=== PATIENT | female | born 1955 | race Caucasian/White ===

== ENCOUNTER → 2018-05-01 00:14 | Outpatient (CLI) | payer BC, SELFPAY ==
--- NOTE | 2018-05-01 11:50 | DI.REPORT_ITS ---
SYMPTOM/DIAGNOSIS: SCREENING, BREAST CANCER SCREENING Z12.31 BILATERAL SCREENING MAMMOGRAMS: Mammograms were interpreted according to the usual protocol including computer analysis with CAD system, tomosynthesis and C view imaging. Comparison is made with exams from 2012 through 2017. The breasts are composed of scattered fibroglandular densities, breast density category B. No suspicious masses or suspicious microcalcifications are seen. There has been no significant change. IMPRESSION: Category 1B negative mammogram. Routine screening is recommended. [facility] ASSESSMENT OF FINDINGS: Negative. Category 1. Patient will receive a letter notifying them of these results. BI-RADS category B. There are scattered areas of fibroglandular density.
== END ==
PROVIDERS: Visit Provider Obstetrics & Gynecology Gynecology
DX: Z12.31 Encounter for screening mammogram for malignant neoplasm of breast (principal)
CPT/HCPCS: 77063; 77067

== ENCOUNTER 2019-07-15 02:08 | Outpatient (CLI) | payer MEDICARE, SELFPAY ==
[2019-07-15 11:32] LABS: ALT 21 U/L (14-59); AST 22 U/L (15-37); Albumin 3.8 g/dL (3.4-5.0); Alkaline Phosphatase 90 U/L (46-116); Anion Gap 8.3 mmol/L (3-11); BUN 15 mg/dL (7-18); Bilirubin, Total 0.5 mg/dL (0.2-1.0); CO2 31.7 mmol/L (21.0-32.0); CREATININE 0.86 mg/dL (0.55-1.02); Calculated LDL 111 mg/dL; Chloride 103 mmol/L (98-107); Cholesterol 189 mg/dL (50-200); Glucose 77 mg/dL (70-100); HDL Cholesterol 53 mg/dL (40-60); Sodium 143 mmol/L (136-145); Triglyceride 125 mg/dL (30-150)
== END 2019-07-15 02:28 ==
PROVIDERS: Visit Provider Obstetrics & Gynecology Gynecology
DX: E78.00 Pure hypercholesterolemia, unspecified
CPT/HCPCS: 36415; 80053; 80061

== ENCOUNTER 2019-08-07 03:16 | Outpatient (CLI) | payer MEDICARE, OTHER, SELFPAY ==
--- NOTE | 2019-08-07 07:30 | DI.MAMMO_ITS ---
EXAM: MG MAMMO SCREENING MG MAMMO SCREENING CLINICAL HISTORY: screening screening TECHNIQUE: Mammograms were interpreted according to the usual protocol including computer analysis w ith CAD system, tomosynthesis and C-view imaging. COMPARISON: 2008 through 2018 FINDINGS: The breasts are composed of scattered fibroglandular densities, Breast Density category B. No suspicious masses or suspicious microcalcifications are seen. No skin thickening or abnormal axillary lymph nodes are seen. There has been no significant change from prior exams. IMPRESSION: BIRADS Category 1, negative mammogram. Yearly screening mammography is recommended.
== END 2019-08-07 03:36 ==
PROVIDERS: Visit Provider Obstetrics & Gynecology Gynecology
DX: Z12.31 Encounter for screening mammogram for malignant neoplasm of breast (principal)
CPT/HCPCS: 77063; 77067

== ENCOUNTER 2019-08-18 01:06 | Outpatient (CLI) | payer MEDICARE, OTHER, SELFPAY ==
--- NOTE | 2019-08-18 16:48 | DI.DEXA_ITS ---
EXAM: XR DEXA BONE DENSITY W/WO AUDELIA INDICATION: postmenopausal female - osteoporosis screening Z78.0 ASYMPTOMATIC KIRAN. COMPARISON: No exams were available for comparison TECHNIQUE: 2D digital imaging was performed. FINDINGS: The AUDELIA image shows no evidence of compression fractures. Bone mineral density measurements of the l umbar spine correspond to a total T-score of -0.3, in the normal range. The bone mineral density ronan surements of the left hip correspond to a total T-score of -0.3, in the normal range. The bone driver license examiner al density measurements of the left forearm correspond to a T-score of the distal 3rd of -0.8. IMPRESSION: Normal bone mineral density.
== END 2019-08-18 01:26 ==
PROVIDERS: Visit Provider Obstetrics & Gynecology Gynecology
DX: Z13.820 Encounter for screening for osteoporosis (principal); Z78.0 Asymptomatic menopausal state
CPT/HCPCS: 77080

== ENCOUNTER 2020-03-21 11:53 | Inpatient (IN) | payer MEDICARE, OTHER, SELFPAY ==
[2020-03-21] VITALS (58 sets, daily range): BP systolic 63–120; BP diastolic 36–101; PULSE 65–164; RESP 11–28; TEMP 37.2–39.4; O2SAT 6–100
[2020-03-21] MEDS: Normal Saline 1,000 ML 1000 ML IV ×2 (12:15→14:45)
[2020-03-21] MEDS: Ondansetron 4 MG/2 ML VIAL IVP (13:11)
[2020-03-21 13:19] LABS: Abs Immature Grans 0.01 k/cumm (0.0-0.09); Absolute Basophil Count 0.01 k/cumm (0.0-0.2); Absolute Lymphocyte Count 0.79 k/cumm (1.2-3.4); Absolute Monocyte Count 0.36 k/cumm (0.11-0.7); Basophils % 0.2; HCT 43.2 % (36.0-46.0); HGB 14.5 g/dL (12.0-15.5); Immature Grans % 0.2 %; Lymphocytes % 12.6; Mean Corp. HGB Concentration 33.6 g/dL (32.0-36.0); Mean Corpuscular Hemoglobin 29.8 pg (27.0-33.0); Mean Corpuscular Volume 88.7 fL (80-95); Mean Platelet Volume 10.4 fL (8.0-11.0); Monocytes % 5.7; Neutrophils % 81.3; Platelet Count 183 x1000/uL (130-400); RBC 4.87 m/cumm (4.00-5.20); RBC Distribution Width 13.1 % (11.7-14.6); White Blood Cell Count 6.27 k/cumm (4.4-10.8)
--- NOTE | 2020-03-21 13:22 | ED.GENADUL_ITS ---
Discharge Plan Discharge Details Chief Complaint: Fever Admit Date/Time: 03/22/20 11:52 Admit Provider: Thad Lyon Attending Provider: Thad Lyon Primary Care Provider: None,None ED Provider: Manisha Gonzalez Discharge Data Discharge Date/Time-TO BE ENTERED AT DEPARTURE: 03/21/20 20:15 Medical Decision Making <MAIKEL Stanton - Last Filed: 03/21/20 18:09> Is a healthy appearing 65-year-old patient presenting for concerns of fever which began yesterday. Patient describes 2 days of malaise, fevers this morning and onset of nausea and malaise yesterday. Patient reports vomiting x1 which was bilious today. Patient denies any associated diarrhea. Patient denies any abdominal pain. Patient denies headache, dizziness, chest pain, difficulty breathing or shortness of breath, wheezing. Denies any increased respiratory effort or cough. Patient denies any change of sense of taste or smell. She was able to tolerate drinking tea this morning. Patient reports urinating normal amounts. Denies associated dysuria, urgency, frequency or hematuria. Patient specifically concerned with the possibility of Covid. Patient is well-appearing at this time in no apparent distress. Patient does describe mild nausea. Patient is otherwise quite active and healthy takes no daily medications is a non-smoker. Patient denies any obvious tick bites Plan to provide 1 L of IV fluid as patient does have a heart rate on initial presentation of 103 and complaints of fever. On initial presentation patient's temperature 37.3. Patient's initial labs reveal no leukocytosis or shift. LFTs normal, glucose 111, no significant electrolyte abnormalities. Patient's urinalysis unremarkable for nitrates or leukocyte esterase, inconsistent with acute urinary tract infection Patient's vital signs are reevaluated by nursing staff and a notable fever of 103 developed. Nursing staff informed me of this. Tylenol was ordered. Given patient's obvious temperature of 103 despite any significant complaints we will plan to extend patient's work-up to include lactate, blood cultures, chest x- ray. Patient agreeable to this plan of care. Additional IV fluid was provided. Of note patient's blood pressure is typically low however she did have a drop in her blood pressure to 80/50. When considering patient's high fever and lack of source I am concerned, despite patient appearing well, in sending this patient home Dr. Manisha Gonzalez evaluated patient at the bedside. Did recommend broad-spectrum antibiotic coverage at this time and admission to the hospital. Recommended cefepime and vancomycin. Patient does have notable penicillin allergy which she describes as a rash occurring when she was younger no history of anaphylaxis, we discussed use of cefepime. We will plan to go ahead with cefepime administration IV. Patient signed out pending disposition specifically there is a notable delay currently in obtaining a hospital bed, due to high census, nurse manager relationship trying to open an additional bed for admission. Patient signed out pending disposition to Dr. Gonzalez. <Manisha Gonzalez MD - Last Filed: 03/23/20 01:19> I have seen and examined this patient and agree with the history and exam as documented by the PA. Review of systems per the PA. Briefly Jazmin Owens is a 65-year-old woman presenting to the emergency department with 1 week of mild cough and fever starting today. Patient initially reported mild headache, not the worst of her life, headache subsequently resolved after Tylenol. No meningismus on exam. Patient is well and nontoxic-appearing. Initial plan for patient to be discharged, however patient had 4 consecutive systolic blood pressures in the 80s, with lowest blood pressure 81. At no time did patient have a change in symptoms during these episodes. Concern for possible early sepsis versus dehydration versus other. No apparent localizing signs/symptoms at this time beyond mild cough, however patient has not been coughing in the emergency department. Exam/history is not consistent with bacterial meningitis, necrotizing fasciitis. Blood pressure improved to SBP 90. Given hypotension, plan for admission, broad-spectrum antibiotics at this time. Medical Records Medical records reviewed: Yes I reviewed the patient's medical records. Lab Data Lab results reviewed: Yes I reviewed the patient's lab results. ECG Data Attestation: I personally reviewed and interpreted this ECG (s) as follows: Interpretation: EKG shows sinus rhythm at 75, normal axis, no STEMI, diffuse T wave flattening, nondiagnostic EKG HPI <MAIKEL Stanton - Last Filed: 03/21/20 18:09> General Date/Time Provider Initiated Documentation: 03/21/20 12:44 . HPI Narrative: Is a 65-year-old patient presenting for complaints of fever. Patient reports fever. Patient complains of malaise which began yesterday and low-grade fever. Patient reports mild nausea and today had a single episode of vomiting. Patient denies any chest pain, difficulty breathing with shortness of breath or wheezing. Denies obvious headache or dizziness. Patient does feel like she may become dizzy when changing positions but denies any obvious dizziness. Patient denies any abdominal pain. Denies diarrhea. Patient denies rash. Denies ear pain, sore throat. Denies any change in taste or smell. Patient reports generalized malaise for the last 2 days. Patient denies any dysuria, urgency or frequency of urination. Denies any hematuria. Denies back pain. Patient does report she feels well hydrated as she has been drinking plenty of water given the hot weather. Patient concerned with the possibility of Covid given the onset of her fever and concerned as her is older than she is and wants to be cautious with the possibility of Covid. Related Data Home Medications Medication Instructions Recorded Confirmed Eye Cap 1 cap PO DAILY AM 10/01/13 03/21/20 [id number]-odgf-hxzet acid 1 ea PO DAILY 10/01/13 03/21/20 [Daily Multiple Tablet] Allergies Allergy/AdvReac Type Severity Reaction Status Date / Time Penicillins Allergy Unknown Unverified 03/21/20 12:12 General Stated Complaint: Fever SANDY: 3 Review of Systems <MAIKEL Stanton - Last Filed: 03/21/20 18:09> All systems reviewed & are unremarkable except as noted in HPI and below PFSH <MAIKEL Stanton - Last Filed: 03/21/20 18:09> Surgical History section x3. Social History Smoking/Tobacco Use Status: Never Second Hand Exposure: Yes Alcohol Intake: never Drug use: Never Household members: spouse Number of Children: 3 Seatbelt use: always Do you feel safe at home: Yes Do you feel safe in your relationship?: Yes Female Reproductive History Menstrual Menopause type: natural Exam <MAIKEL Stanton - Last Filed: 03/21/20 18:09> Narrative Exam Narrative: CONST: Healthy appearing patient, in no acute distress. Alert and oriented. HENMT: Head nomocephalic, normal to inspection. Atraumatic. Hearing grossly normal. External ear canal no erythema or swelling. TM normal bilaterally. Nose normal to inspection. No rhinnorhea. Normal facial exam. Oral mucosa normal. Tounge normal. Dentition normal. Erythema noted of the posterior oropharynx. Uvula midline. EYES: General normal appearance. Alignment normal. Eyelids normal. Conjunctiva normal. Sclera normal. PERRL. NECK: Normal visual inspection. FROM. No lymphadenopathy. Trachea midline. No Midline tenderness. CHEST: Normal insepection of the chest. RESP: Normal respiratory effort. Speaking full sentences. No cough. No wheezing. No retractions. Clear to auscaltation. Breath sound equal and present bilaterally. CARDIO: No JVD. Normal PMI. Regular Rate. Regular Rhythm. Normal peripheral pulses. GI: Normal inspection of abdomen. No distension. Soft. Nontender. Bowel sounds present in all 4 quadrants. No rebound. No gaurding. MUSCULOSKELETAL: Normal Gait. FROM of all extremities. Distal neurovascularly intact. Sensation intact distally. SKIN: Normal. Dry. No rashes. NEURO: Alert and awake. Speech clear. PSYCH: Normal affect. Cooperative. Course <MAIKEL Stanton - Last Filed: 03/21/20 18:09> Vital Signs Vital signs: Vital Signs Temperature 37.3 C 03/21/20 12:05 Pulse 103 H 03/21/20 12:05 Respiratory Rate 18 03/21/20 12:05 Blood Pressure 100/67 03/21/20 12:05 Pulse Oximetry 95 03/21/20 12:05 Temperature 37.3 C 03/21/20 12:05 Temperature Source Oral 03/21/20 12:05 Pulse 103 H 03/21/20 12:05 Respiratory Rate 18 03/21/20 12:05 Respiratory Effort Non-Labored 03/21/20 12:11 Blood Pressure 100/67 03/21/20 12:05 Blood Pressure Position Sitting 03/21/20 12:05 Pulse Oximetry 95 03/21/20 12:05 Oxygen Delivery Method Room Air 03/21/20 12:05 Oxygen Flow Rate 0 03/21/20 12:05 Pain Level 0 03/21/20 12:05 Lab/Test Results Lab/Test Results: Laboratory Tests Range/Units 03/21/20 12:35 WBC (4.4-10.8) k/cumm 6.27 RBC (4.00-5.20) m/cumm 4.87 Hgb (12.0-15.5) g/dL 14.5 Hct (36.0-46.0) % 43.2 MCV (80-95) fL 88.7 MCH (27.0-33.0) pg 29.8 MCHC (32.0-36.0) g/dL 33.6 RDW (11.7-14.6) % 13.1 Plt Count (130-400) x1000/uL 183 MPV (8.0-11.0) fL 10.4 Immature Gran % % 0.2 Neutrophils % 81.3 Lymphocytes % 12.6 Monocytes % 5.7 Eosinophils % 0.0 Basophils % 0.2 Absolute Neutrophils (1.2-6.7) k/cumm 5.10 Absolute Lymphocytes (1.2-3.4) k/cumm 0.79 L Absolute Monocytes (0.11-0.7) k/cumm 0.36 Absolute Eosinophils (0.0-0.7) k/cumm 0.00 Absolute Basophils (0.0-0.2) k/cumm 0.01 Sign Out <MAIKEL Stanton - Last Filed: 03/21/20 18:09> Sign Out Data: Sign Out Comment: signed out pending acceptance for admission Last updated by Myra Martinez PA at 03/21/20 17:04
[2020-03-21 13:27] LABS: ALT 43 U/L (14-59); AST 45 U/L (15-37); Albumin 3.5 g/dL (3.4-5.0); Alkaline Phosphatase 80 U/L (46-116); Anion Gap 7.7 mmol/L (3-11); BUN 18 mg/dL (7-18); Bilirubin, Total 0.5 mg/dL (0.2-1.0); CO2 29.3 mmol/L (21.0-32.0); CREATININE 1.04 mg/dL (0.55-1.02); Chloride 99 mmol/L (98-107); Estimated GFR 53.02 (mL/min/1.73m2); Glucose 111 mg/dL (74-106); Potassium 4.2 mmol/L (3.5-5.1); Sodium 136 mmol/L (136-145); Total Protein 7.8 g/dL (6.4-8.2)
[2020-03-21 13:38] LABS: Bilirubin Negative (Negative); Blood Trace-intact (Negative); Clarity Clear (Clear); Glucose Negative (Negative); Ketones 15 mg/dL (Negative); Leukocyte Esterase Negative (Negative); Nitrite Negative (Negative); Urobilinogen 0.2 EU/dL (Up TO 0.2)
[2020-03-21 13:47] LABS: Bacteria Few HPF (Negative); C & S Indicated? No; Casts 0-2 Fine Granular LPF (Negative); Crystals Negative HPF (Negative); Epithelial Cells Rare HPF (Negative); Mucus Negative (Negative); Other Cells Rare Renal (Negative)
--- NOTE | 2020-03-21 14:00 | DI.RAD_ITS ---
EXAM: XR PORTABLE CHEST AP CLINICAL HISTORY: fever. TECHNIQUE: 2D digital imaging was performed. COMPARISON: No exams were available for comparison FINDINGS: LUNGS: Clear. No pleural abnormality seen. HEART: Normal. MEDIASTINUM: Normal. OTHER FINDINGS: None. IMPRESSION: No acute pulmonary findings. DATA REPOSITORY: RADIATION DOSE DELIVERED:
[2020-03-21] MEDS: Acetaminophen 500 MG TAB 1000 MG PO (14:10)
[2020-03-21 14:46] LABS: Lactate 0.5 mmol/L (0.6-1.4)
[2020-03-21] MEDS: CEFEPIME 2 GM in Normal Saline 100 ML IVPB (16:58)
--- NOTE | 2020-03-21 18:00 | HPE_ITS ---
Date of service: 03/21/20 Time of Service: 18:00 Assessment and Plan Assessment and plan (1) Fever: Status: Acute Assessment and plan: Fever, with non-specific constitutional symptoms. I think the most likely explanation for the BP is a baseline low with an element of dehydration due to nausea and hot weather, but will continue to monitor closely for any signs of instability. In meantime will continue empiric abx started in ER pending culture results. COVID certainly possible, will treat as PUI. History of Present Illness History of Present Illness Chief Complaint: fever Narrative: 65 female here with one day fever, nausea, LIM, minimal cough (like her seasonal allergies), perhaps some myalgia (though was working in garden, thinks it's that). In ER temp to 39.4. W/u negative, including normal white count (though absolute lymphopenia noted), neg CXR and urine. Normal lactate. However, BP in 80s and admitted out of concern for possible emerging instability. After 2 L NS BP in 90s/sys. Note that baseline appears to be low 100s. No travel, no similar illness at home. Uses good social distancing. In ER blood cxx obtained and started on Vanco and Cefipime. Review of Systems All systems reviewed & are unremarkable except as noted in HPI and below PFSH Surgical History section x3. Social History Smoking/Tobacco Use Status: Never Second Hand Exposure: Yes Alcohol Intake: never Drug use: Never Household members: spouse Number of Children: 3 Seatbelt use: always Do you feel safe at home: Yes Do you feel safe in your relationship?: Yes Female Reproductive History Menstrual Menopause type: natural Meds Home Medications and Allergies Home Medications Medication Instructions Recorded Confirmed Type Eye Cap 1 cap PO DAILY AM 10/01/13 03/21/20 History Women's Calcium 10/01/13 Clinic ktthbildwbdz-ormm-jfozn acid 1 ea PO DAILY 10/01/13 03/21/20 History [Daily Multiple Tablet] Allergies Allergy/AdvReac Type Severity Reaction Status Date / Time Penicillins Allergy Unknown Unverified 03/21/20 12:12 Exam Narrative Exam Narrative: 91/51, 70, 37.2 (max 39.4), 18, 95% RA. Appears entirely comfortable. HEENT unremarkable; neck supple; lungs clear; heart RRR w/o MRG; abdomen soft and NT w/o HSM; extremities w/o edema; skin w/o rash; neuro Ox3, nonfocal Results Labs Result diagrams: 03/21/20 12:35 03/21/20 12:35 Labs: Laboratory Results - last 24 hr 03/21/20 03/21/20 03/21/20 12:35 12:35 13:20 WBC 6.27 RBC 4.87 Hgb 14.5 Hct 43.2 MCV 88.7 MCH 29.8 MCHC 33.6 RDW 13.1 Plt Count 183 MPV 10.4 Immature Gran % 0.2 Neutrophils % 81.3 Lymphocytes % 12.6 Monocytes % 5.7 Eosinophils % 0.0 Basophils % 0.2 Absolute Neutrophils 5.10 Absolute Lymphocytes 0.79 L Absolute Monocytes 0.36 Absolute Eosinophils 0.00 Absolute Basophils 0.01 Sodium 136 Potassium 4.2 Chloride 99 Carbon Dioxide 29.3 Anion Gap 7.7 BUN 18 Creatinine 1.04 H Estimated GFR/1.73 m2 53.02 Glucose 111 H Lactate Calcium 9.0 Total Bilirubin 0.5 AST 45 H ALT 43 Alkaline Phosphatase 80 Total Protein 7.8 Albumin 3.5 Urine Color Yellow Urine Clarity Clear Urine pH 7.0 Ur Specific [place] 1.020 Urine Protein 30 H Urine Ketones 15 H Urine Blood Trace-intact H Urine Nitrite Negative Urine Bilirubin Negative Urine Urobilinogen 0.2 Ur Leukocyte Esterase Negative Urine RBC 3-5 H Urine WBC 3-5 Ur Epithelial Cells Rare Urine Crystals Negative Urine Bacteria Few Urine Casts 0-2 fine granular Urine Mucus Negative Urine Other Rare renal Ur Culture Indicated? No Urine Glucose Negative 03/21/20 14:38 WBC RBC Hgb Hct MCV MCH MCHC RDW Plt Count MPV Immature Gran % Neutrophils % Lymphocytes % Monocytes % Eosinophils % Basophils % Absolute Neutrophils Absolute Lymphocytes Absolute Monocytes Absolute Eosinophils Absolute Basophils Sodium Potassium Chloride Carbon Dioxide Anion Gap BUN Creatinine Estimated GFR/1.73 m2 Glucose Lactate 0.5 L Calcium Total Bilirubin AST ALT Alkaline Phosphatase Total Protein Albumin Urine Color Urine Clarity Urine pH Ur Specific [place] Urine Protein Urine Ketones Urine Blood Urine Nitrite Urine Bilirubin Urine Urobilinogen Ur Leukocyte Esterase Urine RBC Urine WBC Ur Epithelial Cells Urine Crystals Urine Bacteria Urine Casts Urine Mucus Urine Other Ur Culture Indicated? Urine Glucose Last Vital Signs Temp 37.2 C 03/21/20 17:26 Pulse 70 03/21/20 17:26 Resp 18 03/21/20 17:26 BP 91/51 L 03/21/20 17:26 Pulse Ox 95 03/21/20 17:26 COVID-19 Screening In the past 14 days, have you traveled outside of [place]?: NO Had IN PERSON contact w/suspected or confirmed C-19 person: No
[2020-03-21] MEDS: Lactated Ringers 1,000 ML 150 ML IV (21:15)
[2020-03-21] MEDS: Acetaminophen 325 MG TAB 650 MG PO (21:45)
[2020-03-21] MEDS: Normal Saline Flush 10 ML SYR (22:39)
[2020-03-22] VITALS (85 sets, daily range): BP systolic 76–108; BP diastolic 44–71; PULSE 53–79; RESP 11–30; TEMP 36.3–37.7; O2SAT 95–99
[2020-03-22] MEDS: Lactated Ringers 1,000 ML 150 ML IV ×2 (03:36→22:41)
[2020-03-22] MEDS: Acetaminophen 325 MG TAB 650 MG PO ×2 (05:09→15:58)
[2020-03-22 07:32] LABS: Abs Immature Grans 0.01 k/cumm (0.0-0.09); Absolute Basophil Count 0.01 k/cumm (0.0-0.2); Absolute Lymphocyte Count 0.64 k/cumm (1.2-3.4); Absolute Monocyte Count 0.25 k/cumm (0.11-0.7); Absolute Neutrophil Count 4.64 k/cumm (1.2-6.7); Basophils % 0.2; HCT 35.1 % (36.0-46.0); HGB 11.6 g/dL (12.0-15.5); Immature Grans % 0.2 %; Lymphocytes % 11.5; Mean Corpuscular Hemoglobin 29.5 pg (27.0-33.0); Mean Corpuscular Volume 89.3 fL (80-95); Mean Platelet Volume 10.2 fL (8.0-11.0); Monocytes % 4.5; Neutrophils % 83.6; Platelet Count 153 x1000/uL (130-400); RBC 3.93 m/cumm (4.00-5.20); RBC Distribution Width 12.7 % (11.7-14.6); White Blood Cell Count 5.55 k/cumm (4.4-10.8)
[2020-03-22 07:40] LABS: AST 49 U/L (15-37); Anion Gap 7.1 mmol/L (3-11); BUN 11 mg/dL (7-18); CO2 26.9 mmol/L (21.0-32.0); CREATININE 1.03 mg/dL (0.55-1.02); Calcium 7.8 mg/dL (8.5-10.1); Chloride 104 mmol/L (98-107); Estimated GFR 53.61 (mL/min/1.73m2); Glucose 115 mg/dL (74-106); Potassium 3.6 mmol/L (3.5-5.1); Sodium 138 mmol/L (136-145)
--- NOTE | 2020-03-22 08:12 | PGE_ITS ---
Date of Service Date of service: 03/22/20 Time of Service: 13:33 Assessment and Plan Assessment and plan (1) Sepsis: Status: Acute Assessment and plan: Given the hx of dental cleaning 2 weeks ago, the most likely scenario is bacteremia/subacute bacterial endocarditis. Procalcitonin and elevated CRP also point to a bacterial source. Obtain CT chest/abdomen/pelvis to ensure that there haven't been any septic emboli. For now, continue current antibiotics, IVF, trend lactates, CRP, procalcitonins. Obtain echo. (2) Hypotension: Status: Acute Assessment and plan: Likely due to #1, but we will also rule out PE. Seems fluid responsive. Lactates ok. Continue to monitor, but upgrade to ICU level of care. I do not feel she needs pressors at this time. Yet. Obtain echo. (3) Elevated troponin: Status: Acute Assessment and plan: In setting of fever, recent dental work, elevated CRP/procalcitonin, we need to consider subacute bacterial endocarditis. However, we also need to rule out ACS and PE. Treating with asa, trending troponins, monitoring on a cardiac cath lab manager. Obtain echo. Consult cardiology. EKG unchanged (4) COVID-19 ruled out by laboratory testing: Status: Acute Assessment and plan: Negative nasopharyngeal PCR. (5) DVT prophylaxis: Status: Acute Assessment and plan: Start lovenox SC - may have to upgrade to treatment dose depending on results of CTA of the chest. (6) Discharge planning issues: Status: Acute Assessment and plan: Full code Upgrade to ICU level of care. Total Critical Care Time 45 minutes. Discussed with . Subjective Subjective Interval history since last seen: Ms Rucker feels feverish, but hasn't had an actual fever so far today. Per [facility], her SBP is usually in low 100's, so hypotension is NOT her baseline. Denies dizziness, chest pain, shortness of breath. Reports nausea and soft stools, but no abdominal pain or diarrhea. +elevated troponin. COVID-19 negative. Got tylenol for headache/malaise. No nausea last night, poor appetite x 2 weeks. She states that about 2 weeks ago she had dental cleaning done. Exam Narrative Exam Narrative: General: Pleasant, middle-aged female, appearing younger than stated age, A&Ox3, does not look sick HEENT: EOMI, MMM Heart: RRR, no m/r/g Lungs: CTAB Abdomen: soft, nontender, nondistended Extremities: no e/c/c BLE's Objective Objective Clinical Data: Abnormal lab results 03/21/20 03/21/20 03/21/20 Range/Units 12:35 12:35 13:20 RBC (4.00-5.20) m/cumm Hgb (12.0-15.5) g/dL Hct (36.0-46.0) % Absolute Lymphocytes 0.79 L (1.2-3.4) k/cumm Creatinine 1.04 H (0.55-1.02) mg/dL Glucose 111 H (74-106) mg/dL Lactate (0.6-1.4) mmol/L Calcium (8.5-10.1) mg/dL AST 45 H (15-37) U/L Urine Protein 30 H (Negative) mg/dL Urine Ketones 15 H (Negative) mg/dL Urine Blood Trace-intact H (Negative) Urine RBC 3-5 H (0-2) HPF 03/21/20 03/22/20 03/22/20 Range/Units 14:38 06:40 06:40 RBC 3.93 L (4.00-5.20) m/cumm Hgb 11.6 L D (12.0-15.5) g/dL Hct 35.1 L (36.0-46.0) % Absolute Lymphocytes 0.64 L (1.2-3.4) k/cumm Creatinine 1.03 H (0.55-1.02) mg/dL Glucose 115 H (74-106) mg/dL Lactate 0.5 L (0.6-1.4) mmol/L Calcium 7.8 L (8.5-10.1) mg/dL AST 49 H (15-37) U/L Urine Protein (Negative) mg/dL Urine Ketones (Negative) mg/dL Urine Blood (Negative) Urine RBC (0-2) HPF Vital Signs Temperature 37.5 C 03/22/20 00:30 Temperature Source Temporal Artery Scan 03/22/20 00:30 Pulse 164 H 03/21/20 23:52 Pulse Rhythm Regular 03/22/20 00:30 Pulse 103 H 03/21/20 21:40 Respiratory Rate 17 03/21/20 21:40 Respiratory Effort 03/22/20 00:30 Respiratory Depth Normal 03/22/20 00:30 Respiratory Pattern Normal 03/22/20 00:30 Blood Pressure 89/37 L 03/21/20 23:52 Blood Pressure Mean 48 03/21/20 23:52 Blood Pressure Position Supine 03/21/20 20:15 Pulse Oximetry 92 L 03/21/20 21:48 Oxygen Delivery Method Room Air 03/21/20 20:15 Oxygen Flow Rate 0 03/21/20 20:15 Pain Level 0 03/21/20 20:15 Comment temporal 03/21/20 15:05 Intake & Output 03/21/20 03/21/20 03/22/20 11:59 23:59 11:59 Intake Total 2770 / 2770 1170 / 1170 Output Total 400 / 400 350 / 350 Balance 2370 / 2370 820 / 820 Weight 57 kg Intake: IV 2370 / 2370 1050 / 1050 Oral 400 / 400 120 / 120 Output: Urine 400 / 400 350 / 350 Other: Urine Color Yellow Yellow Urine Appearance Clear Clear Urine Odor None Normal Voiding Methods Bedside Commode Laboratory Results WBC 5.55 k/cumm (4.4-10.8) 03/22/20 06:40 RBC 3.93 m/cumm (4.00-5.20) L 03/22/20 06:40 Hgb 11.6 g/dL (12.0-15.5) L D 03/22/20 06:40 Hct 35.1 % (36.0-46.0) L 03/22/20 06:40 MCV 89.3 fL (80-95) 03/22/20 06:40 MCH 29.5 pg (27.0-33.0) 03/22/20 06:40 MCHC 33.0 g/dL (32.0-36.0) 03/22/20 06:40 RDW 12.7 % (11.7-14.6) 03/22/20 06:40 Plt Count 153 x1000/uL (130-400) 03/22/20 06:40 MPV 10.2 fL (8.0-11.0) 03/22/20 06:40 Immature Gran % 0.2 % 03/22/20 06:40 Neutrophils % 83.6 03/22/20 06:40 Lymphocytes % 11.5 03/22/20 06:40 Monocytes % 4.5 03/22/20 06:40 Eosinophils % 0.0 03/22/20 06:40 Basophils % 0.2 03/22/20 06:40 Absolute Neutrophils 4.64 k/cumm (1.2-6.7) 03/22/20 06:40 Absolute Lymphocytes 0.64 k/cumm (1.2-3.4) L 03/22/20 06:40 Absolute Monocytes 0.25 k/cumm (0.11-0.7) 03/22/20 06:40 Absolute Eosinophils 0.00 k/cumm (0.0-0.7) 03/22/20 06:40 Absolute Basophils 0.01 k/cumm (0.0-0.2) 03/22/20 06:40 Sodium 138 mmol/L (136-145) 03/22/20 06:40 Potassium 3.6 mmol/L (3.5-5.1) 03/22/20 06:40 Chloride 104 mmol/L (98-107) 03/22/20 06:40 Carbon Dioxide 26.9 mmol/L (21.0-32.0) 03/22/20 06:40 Anion Gap 7.1 mmol/L (3-11) 03/22/20 06:40 BUN 11 mg/dL (7-18) D 03/22/20 06:40 Creatinine 1.03 mg/dL (0.55-1.02) H 03/22/20 06:40 Estimated GFR/1.73 m2 53.61 (mL/min/1.73m2) 03/22/20 06:40 Glucose 115 mg/dL (74-106) H 03/22/20 06:40 Lactate 0.5 mmol/L (0.6-1.4) L 03/21/20 14:38 Calcium 7.8 mg/dL (8.5-10.1) L 03/22/20 06:40 Total Bilirubin 0.5 mg/dL (0.2-1.0) 03/21/20 12:35 AST 49 U/L (15-37) H 03/22/20 06:40 ALT 43 U/L (14-59) 03/21/20 12:35 Alkaline Phosphatase 80 U/L (46-116) 03/21/20 12:35 Total Protein 7.8 g/dL (6.4-8.2) 03/21/20 12:35 Albumin 3.5 g/dL (3.4-5.0) 03/21/20 12:35 Urine Color Yellow (Yellow) 03/21/20 13:20 Urine Clarity Clear (Clear) 03/21/20 13:20 Urine pH 7.0 (5-8) 03/21/20 13:20 Ur Specific [place] 1.020 (1.005-1.025) 03/21/20 13:20 Urine Protein 30 mg/dL (Negative) H 03/21/20 13:20 Urine Ketones 15 mg/dL (Negative) H 03/21/20 13:20 Urine Blood Trace-intact (Negative) H 03/21/20 13:20 Urine Nitrite Negative (Negative) 03/21/20 13:20 Urine Bilirubin Negative (Negative) 03/21/20 13:20 Urine Urobilinogen 0.2 EU/dL (Up TO 0.2) 03/21/20 13:20 Ur Leukocyte Esterase Negative (Negative) 03/21/20 13:20 Urine RBC 3-5 HPF (0-2) H 03/21/20 13:20 Urine WBC 3-5 HPF (0-5) 03/21/20 13:20 Ur Epithelial Cells Rare HPF (Negative) 03/21/20 13:20 Urine Crystals Negative HPF (Negative) 03/21/20 13:20 Urine Bacteria Few HPF (Negative) 03/21/20 13:20 Urine Casts 0-2 fine granular LPF (Negative) 03/21/20 13:20 Urine Mucus Negative (Negative) 03/21/20 13:20 Urine Other Rare renal (Negative) 03/21/20 13:20 Ur Culture Indicated? No 03/21/20 13:20 Urine Glucose Negative mg/dL (Negative) 03/21/20 13:20
[2020-03-22 08:29] LABS: C-Reactive Protein 11.86 mg/dL (0.0-0.3)
[2020-03-22 08:34] LABS: COVID-19 RT-PCR UVMMC Result Negative (Negative)
--- NOTE | 2020-03-22 08:43 | PDOC.CMIN ---
- If Service Date Differs Date of service: 03/22/20 Time of Service: 08:43 Care Management Initial Assess REASON FOR HOSPITALIZATION:: Fever PAST MEDICAL HISTORY/PAST SURGICAL HISTORY:: Surgical hx section x 3 PREVIOUS FUNCTIONAL STATUS/SOCIAL/FAMILY SUPPORTS:: Jazmin lives locally with her spouse Tejinder. She is retired and indepedent with all ADL's. CURRENT FUNCTIONAL STATUS:: Jazmin is currently sitting up in bed she is alert. She is being worked up for sepsis related to her Fever and Hypotensition. ADVANCE DIRECTIVES:: None on file, patient states she has a copy at home which her spouse will bring in this evening. Has patient been provided with info about the portal/API?: Yes Did the patient sign up for the portal?: No (Enrolled) CODE STATUS:: Full Code INSURANCE COVERAGE / FINANCIAL ISSUES:: Medicare. BCBS CURRENT HOME/COMMUNITY SERVICES/EQUIPMENT:: No current services PRIMARY CARE PHYSICIAN:: Wants to be refered to [facility], CM will send over a referral POTENTIAL DISCHARGE NEEDS:: Follow up with cardiology if indicated and new referral to new PCP patients choice [facility]. PATIENT/FAMILY EDUCATION NEEDS:: Discharge educations, limitations and follow up plan of care including ask me three and self management. ANTICIPATED BARRIERS TO DISCHARGE:: No identified barriers TRANSPORTATION:: Via private car with spouse at time of discharge. PLAN:: Jazmin is now ICU level of care, she had a cardiology consult. She continues to have some hypotension, she is being treated with IV abx and her blood cultures are pending. No anticipated services CM will assist with PCP set up and continue to assess for discharge needs.
[2020-03-22 08:52] LABS: Procalcitonin 1.7 ng/mL
[2020-03-22] MEDS: CEFEPIME 1 GM in Normal Saline 50 ML IVPB ×3 (10:34→18:17)
[2020-03-22 10:51] LABS: Lyme Ab w Rflx to Lyme Confirm Negative (Negative)
[2020-03-22] MEDS: Lactated Ringers 1,000 ML 1000 ML IV (12:11)
[2020-03-22 12:21] LABS: Lactate 0.7 mmol/L (0.6-1.4)
[2020-03-22 12:46] LABS: Troponin I 0.44 ng/mL (<0.06)
[2020-03-22] MEDS: Omnipaque 350 MG/ML 100 ML BTL IJ (13:27)
--- NOTE | 2020-03-22 13:45 | DI.CT_ITS ---
EXAM: CT CHEST PE ABD PELVIS W TECHNIQUE: CT angiography of the chest, abdomen and pelvis was performed with bolus infusion of 75 c c of Omnipaque 350. Axial CT angiography was performed with multi-slice acquisition and multi-planar and/or 3D reconstruc tions. COMPARISON: No exams were available for comparison FINDINGS: The lungs are clear. No pleural effusion. No evidence of pulmonary embolic disease. No thoracic aort ic dissection. No pleural effusion. No mediastinal or hilar adenopathy. Tracheobronchial tree appears intact. Note is made of a couple of small left hepatic lobe lesions with peripheral nodular enhancement consi sting with hepatic hemangioma. Gallbladder is collapsed. Small quantity of fluid in gallbladder fos sa, nonspecific. No cholelithiasis by CT criteria. No biliary dilatation. Question mild wall thick ening of duodenum. Question wall thickening ascending colon, no pericolonic fat edema. Mild wall th ickening of transverse colon may also be present. Pancreas is unremarkable. Spleen shows unremarkable early arterial phase pattern of enhancement. Adrenals and kidneys are unremarkable appearance. No abdominal aortic aneurysm or dissection. Major branches of the abdominal aorta appear normal. No a bdominal or pelvic adenopathy. Normal appendix. No significant abdominal wall hernia. Pressure Washer structures appear intact for age. IMPRESSION: No evidence of acute vascular abnormality of the chest, abdomen or pelvis. No evidence of pulmonary embolic disease. Findings raising the possibility GI inflammatory/infectious process with possible signs of colitis an d duodenitis. Please correlate clinically. RADIATION DOSE DELIVERED: 1,127.09mGy.cm Total DLP DATA REPOSITORY: All CT scans at this facility are submitted to the National Radiology Data Registry (NRDR) Dose Index Registry (DIR) with the [employer] (ACR). RADIATION OPTIMIZATION: All CT scans at this facility use at least one of these dose optimization te chniques: automated exposure control; mA and/or kV adjustment per patient size (includes targeted exa ms where dose is matched to clinical indication); or iterative reconstruction. Seventy-five
[2020-03-22] MEDS: Aspirin E.C. 325 MG TABEC PO (13:56)
[2020-03-22] MEDS: Enoxaparin 40 MG/0.4 ML SYR SC (13:57)
[2020-03-22 14:10] LABS: INR 1.1 (0.9-1.1); PTT Activated 30.5 sec (21.0-31.4); Prothrombin Time 11.1 sec (9.3-11.0)
[2020-03-22 14:24] LABS: D-Dimer 1535 ng/mlFEU (<500)
--- NOTE | 2020-03-22 14:27 | W.CARDCONSUL ---
Date of service: 03/22/20 Time of Service: 14:28 Assessment and Plan Assessment and plan (1) Hypotension: Status: Acute (2) Elevated troponin: Status: Acute (3) Sepsis: Status: Acute (4) Fever: Status: Acute Assessment and plan: 1. Elevated troponin in the setting of inflammatory response. The patient has a fever and elevated CRP. Blood cultures are still pending. There is still no source of infection and unclear whether or not this is viral or bacterial in nature. She has no chest pain now or prior to suggest this is a type I non-STEMI. She is comfortable in bed and has not had any episodes of palpitations or arrhythmia. This likely represents a type II non-STEMI though it is unclear whether or not the trigger is simply hypotension from presumed sepsis or otherwise. Her EKG is reassuring as is her exam. She has no murmur or evidence of heart failure. Given her recent tooth cleaning there is also suspicion for possible endocarditis but again, I do not hear a murmur and she has no other sequelae of endocarditis on physical exam. Certainly there is concern for a possible viral myocarditis. ?Agree with serial troponins ?Echocardiogram to evaluate LV function and rule out endocarditis ?Blood cultures pending ?Would hold off on anticoagulation at this point. I think a baby aspirin is appropriate ?She will need an ischemic evaluation as an outpatient. ?She should be fluid resuscitated or pressors should be used with a goal map above 60 mmHg. Please consult cardiology with any further questions History of Present Illness History of Present Illness Chief Complaint: Fever Narrative: Ms. Rucker is a 65-year-old female who presented to the hospital yesterday with 1 day of fever nausea and myalgias. She was found to have a temperature of 39.4 and mildly hypotensive. She was given fluid and started on broad-spectrum antibiotics. She is currently being worked up for a bacterial infection. She has had a COVID-19 rule out with PCR. A chest and abdominal CT scan showed no clear source of infection though some concern for colitis. A troponin was drawn which was elevated at 0.4. CRP was elevated at 12. Blood pressures have remained with systolic in the 80s throughout the day. She states that 3 days ago she was feeling well. She is always been very healthy. She denies chest pain both at rest and with exertion. She has had no lightheadedness or dizziness. She has had no lower extremity edema syncope or presyncope. She initially came to the hospital just to get a COVID test ended up here due to hypotension but she has never felt that unwell. Of note, she had a tooth cleaning about 2 weeks ago without any significant dental work or bleeding associated with it. She is not had any changes to her bowel or bladder habits. ECG showed normal sinus rhythm with T wave flattening inferiorly. There is no prior for comparison. Review of Systems All systems reviewed & are unremarkable except as noted in HPI and below PFSH Surgical History section x3. Social History Smoking/Tobacco Use Status: Never Second Hand Exposure: Yes Alcohol Intake: never Drug use: Never Household members: spouse Number of Children: 3 Seatbelt use: always Do you feel safe at home: Yes Do you feel safe in your relationship?: Yes Female Reproductive History Menstrual Menopause type: natural Exam Const General: comfortable and no acute distress HENMT Head: normocephalic and atraumatic Eyes General: appearance normal, both eyes and all related structures Resp Effort & Inspection: normal respiratory effort Auscultation: clear to auscultation bilaterally Cardio Jugular venous pressure: no JVD Palpation: normal PMI Rate: regular rate Rhythm: regular rhythm Heart Sounds: S1 normal and S2 normal (No Murmurs, Rubs or Gallops) GI Palpation: soft Auscultation: normoactive bowel sounds Skin General skin exam: no rashes or lesions noted Extrem General: normal to inspection and no clubbing, cyanosis or edema Psych Appearance: grossly normal Results Last Vital Signs Temp 36.3 C L 03/22/20 11:58 Pulse 67 03/22/20 11:50 Resp 16 03/22/20 08:52 BP 100/50 L 03/22/20 11:50 Pulse Ox 99 03/22/20 11:50 Labs Result diagrams: 03/22/20 06:40 03/22/20 06:40 Labs: Laboratory Results - last 24 hr 03/21/20 03/21/20 03/21/20 14:38 14:38 14:45 WBC RBC Hgb Hct MCV MCH MCHC RDW Plt Count MPV Immature Gran % Neutrophils % Lymphocytes % Monocytes % Eosinophils % Basophils % Absolute Neutrophils Absolute Lymphocytes Absolute Monocytes Absolute Eosinophils Absolute Basophils PT INR APTT D-Dimer Sodium Potassium Chloride Carbon Dioxide Anion Gap BUN Creatinine Estimated GFR/1.73 m2 Glucose Lactate 0.5 L Calcium AST Troponin I C-Reactive Protein Procalcitonin Lyme Disease Antibody Negative COVID-19 PCR Negative Nasopharyn COVID-19 PCR Not Applicable Ref Test [facility]/22/[facility] 03/22/20 03/22/20 06:40 06:40 06:40 WBC 5.55 RBC 3.93 L Hgb 11.6 L D Hct 35.1 L MCV 89.3 MCH 29.5 MCHC 33.0 RDW 12.7 Plt Count 153 MPV 10.2 Immature Gran % 0.2 Neutrophils % 83.6 Lymphocytes % 11.5 Monocytes % 4.5 Eosinophils % 0.0 Basophils % 0.2 Absolute Neutrophils 4.64 Absolute Lymphocytes 0.64 L Absolute Monocytes 0.25 Absolute Eosinophils 0.00 Absolute Basophils 0.01 PT INR APTT D-Dimer Sodium 138 Potassium 3.6 Chloride 104 Carbon Dioxide 26.9 Anion Gap 7.1 BUN 11 D Creatinine 1.03 H Estimated GFR/1.73 m2 53.61 Glucose 115 H Lactate Calcium 7.8 L AST 49 H Troponin I C-Reactive Protein 11.86 H Procalcitonin 1.7 Lyme Disease Antibody COVID-19 PCR Nasopharyn COVID-19 PCR Ref Test Perform Site 03/22/20 03/22/20 03/22/20 12:10 12:10 13:19 WBC RBC Hgb Hct MCV MCH MCHC RDW Plt Count MPV Immature Gran % Neutrophils % Lymphocytes % Monocytes % Eosinophils % Basophils % Absolute Neutrophils Absolute Lymphocytes Absolute Monocytes Absolute Eosinophils Absolute Basophils PT INR APTT D-Dimer 1535 H Sodium Potassium Chloride Carbon Dioxide Anion Gap BUN Creatinine Estimated GFR/1.73 m2 Glucose Lactate 0.7 Calcium AST Troponin I 0.44 H* C-Reactive Protein Procalcitonin Lyme Disease Antibody COVID-19 PCR Nasopharyn COVID-19 PCR Ref Test Perform Site 03/22/20 13:19 WBC RBC Hgb Hct MCV MCH MCHC RDW Plt Count MPV Immature Gran % Neutrophils % Lymphocytes % Monocytes % Eosinophils % Basophils % Absolute Neutrophils Absolute Lymphocytes Absolute Monocytes Absolute Eosinophils Absolute Basophils PT 11.1 H INR 1.1 APTT 30.5 D-Dimer Sodium Potassium Chloride Carbon Dioxide Anion Gap BUN Creatinine Estimated GFR/1.73 m2 Glucose Lactate Calcium AST Troponin I C-Reactive Protein Procalcitonin Lyme Disease Antibody COVID-19 PCR Nasopharyn COVID-19 PCR Ref Test Perform Site
[2020-03-22 15:20] LABS: Lactate 0.4 mmol/L (0.6-1.4)
[2020-03-22] MEDS: Pantoprazole 40 MG VIAL IVP (15:24)
[2020-03-22 15:46] LABS: Troponin I 0.37 ng/mL (<0.06)
[2020-03-22 18:00] LABS: Lactate 0.5 mmol/L (0.6-1.4)
[2020-03-23] VITALS (31 sets, daily range): BP systolic 79–117; BP diastolic 43–76; PULSE 54–80; RESP 10–26; TEMP 35.6–37; O2SAT 97
[2020-03-23] MEDS: CEFEPIME 1 GM in Normal Saline 50 ML IVPB ×3 (02:45→18:15)
[2020-03-23] MEDS: Acetaminophen 325 MG TAB 650 MG PO ×2 (05:50→21:01)
[2020-03-23] MEDS: Normal Saline Flush 10 ML SYR IVP ×2 (06:04→14:08)
[2020-03-23 07:02] LABS: Absolute Eosinophil Count 0.14 k/cumm (0.0-0.7); Absolute Lymphocyte Count 0.91 k/cumm (1.2-3.4); Absolute Monocyte Count 0.27 k/cumm (0.11-0.7); Absolute Neutrophil Count 1.73 k/cumm (1.2-6.7); Eosinophils % 4.6; Lymphocytes % 29.8; Mean Corp. HGB Concentration 33.3 g/dL (32.0-36.0); Mean Corpuscular Hemoglobin 29.6 pg (27.0-33.0); Mean Corpuscular Volume 88.9 fL (80-95); Mean Platelet Volume 10.4 fL (8.0-11.0); Monocytes % 8.9; Neutrophils % 56.7; Platelet Count 120 x1000/uL (130-400); RBC 3.71 m/cumm (4.00-5.20); RBC Distribution Width 12.8 % (11.7-14.6); White Blood Cell Count 3.05 k/cumm (4.4-10.8)
[2020-03-23 07:16] LABS: Anion Gap 6.2 mmol/L (3-11); BUN 8 mg/dL (7-18); C-Reactive Protein 11.79 mg/dL (0.0-0.3); CO2 27.8 mmol/L (21.0-32.0); Calcium 7.9 mg/dL (8.5-10.1); Chloride 106 mmol/L (98-107); Glucose 99 mg/dL (74-106); Magnesium 1.8 mg/dL (1.8-2.4); Potassium 3.7 mmol/L (3.5-5.1); Sodium 140 mmol/L (136-145)
[2020-03-23 07:17] LABS: Troponin I 0.16 ng/mL (<0.06)
--- NOTE | 2020-03-23 08:24 | W.PM.PROGNOT ---
Date of Service Date of service: 03/23/20 Time of Service: 12:00 Assessment and Plan Assessment and plan (1) Sepsis: Status: Acute Assessment and plan: Source unclear. Blood cultures are negative at 48 hours. Discussed with [place] [facility] [place] H[place] - possible culture negative endocarditis vs viral myocarditis. She does not give much value to procalcitonin being elevated, but does think that it is important to note that she is better with IV abx. Given no obvious source of infection, per her recommendation, we will continue IV abx until she feels better, then switch to empiric PO therapy and discharge with repeat blood cultures 1 week post discontinuation of antibiotics. Continue to trend CRP, procalcitonin. Ok to transfer out of ICU as no longer hypotensive. Obtain stool studies. (2) Hypotension: Status: Resolved Assessment and plan: Likely due to #1. We were able to lower the rate of IVF today. Ok to transfer out of ICU. (3) NSTEMI (non-ST elevated myocardial infarction): Status: Acute Assessment and plan: Type 2 NSTEMI Likely due to sepsis, though myocarditis could not be ruled out at this time. If does have myocarditis, there is no indication thereof on the echo. No valvular pathology on the echo c/w endocarditis. Discussed with Dr Jessica Terry of [facility] [place] - no indication for cardiac cath. Will treat infection with abx, then perform MPI (possibly as outpatient). ID recommended considering [place], but in absence of positive blood cultures, cardiology did not feel that was necessary. For now, continue asa. Check FLP. Ok to transfer out of ICU. Keep on tele. (4) COVID-19 ruled out by laboratory testing: Status: Acute Assessment and plan: Negative nasopharyngeal PCR. (5) DVT prophylaxis: Status: Acute Assessment and plan: SC lovenox (6) Discharge planning issues: Status: Acute Assessment and plan: Full code Transfer to med surg with tele. Subjective Subjective Interval history since last seen: Afebrile. Feeling better - less clouded. Denies dizziness, chest pain, shortness of breath, nausea, abdominal pain. Having soft stools. SBPs now in 110's. Case discussed with [facility] [place] ID and cardiology - no indication for transfer at this time. Recommendations were made to continue IV abx until she feels better since we haven't been able to identify the source, the switch to empiric PO therapy. She will need an outpatient MPI. Exam Narrative Exam Narrative: General: Pleasant, middle-aged female, appearing younger than stated age, A&Ox3, looks better today than yesterday HEENT: EOMI, MMM Heart: RRR, no m/r/g Lungs: CTAB Abdomen: soft, nontender, nondistended Extremities: no e/c/c BLE's Objective Objective Clinical Data: Abnormal lab results 03/22/20 03/22/20 03/22/20 Range/Units 06:40 12:10 13:19 WBC (4.4-10.8) k/cumm RBC (4.00-5.20) m/cumm Hgb (12.0-15.5) g/dL Hct (36.0-46.0) % Plt Count (130-400) x1000/uL Absolute Lymphocytes (1.2-3.4) k/cumm PT (9.3-11.0) sec D-Dimer 1535 H (<500) ng/mlFEU Creatinine 1.03 H (0.55-1.02) mg/dL Glucose 115 H (74-106) mg/dL Lactate (0.6-1.4) mmol/L Calcium 7.8 L (8.5-10.1) mg/dL AST 49 H (15-37) U/L Troponin I 0.44 H* (<0.06) ng/mL C-Reactive Protein 11.86 H (0.0-0.3) mg/dL 03/22/20 03/22/20 03/22/20 Range/Units 13:19 15:10 15:10 WBC (4.4-10.8) k/cumm RBC (4.00-5.20) m/cumm Hgb (12.0-15.5) g/dL Hct (36.0-46.0) % Plt Count (130-400) x1000/uL Absolute Lymphocytes (1.2-3.4) k/cumm PT 11.1 H (9.3-11.0) sec D-Dimer (<500) ng/mlFEU Creatinine (0.55-1.02) mg/dL Glucose (74-106) mg/dL Lactate 0.4 L (0.6-1.4) mmol/L Calcium (8.5-10.1) mg/dL AST (15-37) U/L Troponin I 0.37 H* (<0.06) ng/mL C-Reactive Protein (0.0-0.3) mg/dL 03/22/20 03/23/20 03/23/20 Range/Units 17:45 00:40 06:40 WBC (4.4-10.8) k/cumm RBC (4.00-5.20) m/cumm Hgb (12.0-15.5) g/dL Hct (36.0-46.0) % Plt Count (130-400) x1000/uL Absolute Lymphocytes (1.2-3.4) k/cumm PT (9.3-11.0) sec D-Dimer (<500) ng/mlFEU Creatinine (0.55-1.02) mg/dL Glucose (74-106) mg/dL Lactate 0.5 L (0.6-1.4) mmol/L Calcium 7.9 L (8.5-10.1) mg/dL AST (15-37) U/L Troponin I 0.20 H* 0.16 H* (<0.06) ng/mL C-Reactive Protein 11.79 H (0.0-0.3) mg/dL 03/23/20 Range/Units 06:40 WBC 3.05 L D (4.4-10.8) k/cumm RBC 3.71 L (4.00-5.20) m/cumm Hgb 11.0 L (12.0-15.5) g/dL Hct 33.0 L (36.0-46.0) % Plt Count 120 L (130-400) x1000/uL Absolute Lymphocytes 0.91 L (1.2-3.4) k/cumm PT (9.3-11.0) sec D-Dimer (<500) ng/mlFEU Creatinine (0.55-1.02) mg/dL Glucose (74-106) mg/dL Lactate (0.6-1.4) mmol/L Calcium (8.5-10.1) mg/dL AST (15-37) U/L Troponin I (<0.06) ng/mL C-Reactive Protein (0.0-0.3) mg/dL Vital Signs Temperature 36.6 C 03/23/20 07:47 Temperature Source Temporal Artery Scan 03/23/20 07:47 Pulse 54 L 03/23/20 07:00 Pulse Rhythm Regular 03/22/20 15:30 Pulse 60 03/23/20 07:00 Respiratory Rate 13 03/23/20 07:00 Respiratory Effort Non-Labored 03/23/20 07:47 Respiratory Depth Normal 03/23/20 07:47 Respiratory Pattern Normal 03/23/20 07:47 Blood Pressure 93/51 L 03/23/20 07:00 Blood Pressure Mean 60 03/23/20 07:00 Blood Pressure Position Supine 03/23/20 03:10 Pulse Oximetry 97 03/23/20 03:10 Oxygen Delivery Method Room Air 03/23/20 07:47 Oxygen Flow Rate 0 03/23/20 07:47 Pain Level 0 03/23/20 07:47 Comment temporal 03/21/20 15:05 Intake & Output 03/22/20 03/22/20 03/23/20 11:59 23:59 11:59 Intake Total 2445 / 4085 1640 / 4085 400 / 400 Output Total 2050 / 3250 1200 / 3250 600 / 600 Balance 395 / 835 440 / 835 -200 / -200 Weight 57 kg Intake: IV 2085 / 3085 1000 / 3085 300 / 300 Oral 360 / 1000 640 / 1000 100 / 100 Output: Urine 2050 / 3250 1200 / 3250 600 / 600 Other: Urine Color Yellow Pale Yellow Yellow Urine Appearance Clear Clear Clear Urine Odor Normal None Normal Comment Mixed with stool. voids to commode. Void 150cc clear yellow urine. Stool Occult Blood Negative Stool Size Moderate Moderate Stool Characteristics Soft Soft Formed Liquid Brown Brown Voiding Methods Bedside Commode Bedside Commode Laboratory Results WBC 3.05 k/cumm (4.4-10.8) L D 03/23/20 06:40 RBC 3.71 m/cumm (4.00-5.20) L 03/23/20 06:40 Hgb 11.0 g/dL (12.0-15.5) L 03/23/20 06:40 Hct 33.0 % (36.0-46.0) L 03/23/20 06:40 MCV 88.9 fL (80-95) 03/23/20 06:40 MCH 29.6 pg (27.0-33.0) 03/23/20 06:40 MCHC 33.3 g/dL (32.0-36.0) 03/23/20 06:40 RDW 12.8 % (11.7-14.6) 03/23/20 06:40 Plt Count 120 x1000/uL (130-400) L 03/23/20 06:40 MPV 10.4 fL (8.0-11.0) 03/23/20 06:40 Immature Gran % 0.0 % 03/23/20 06:40 Neutrophils % 56.7 03/23/20 06:40 Lymphocytes % 29.8 03/23/20 06:40 Monocytes % 8.9 03/23/20 06:40 Eosinophils % 4.6 03/23/20 06:40 Basophils % 0.0 03/23/20 06:40 Absolute Neutrophils 1.73 k/cumm (1.2-6.7) 03/23/20 06:40 Absolute Lymphocytes 0.91 k/cumm (1.2-3.4) L 03/23/20 06:40 Absolute Monocytes 0.27 k/cumm (0.11-0.7) 03/23/20 06:40 Absolute Eosinophils 0.14 k/cumm (0.0-0.7) 03/23/20 06:40 Absolute Basophils 0.00 k/cumm (0.0-0.2) 03/23/20 06:40 PT 11.1 sec (9.3-11.0) H 03/22/20 13:19 INR 1.1 (0.9-1.1) 03/22/20 13:19 APTT 30.5 sec (21.0-31.4) 03/22/20 13:19 D-Dimer 1535 ng/mlFEU (<500) H 03/22/20 13:19 Sodium 140 mmol/L (136-145) 03/23/20 06:40 Potassium 3.7 mmol/L (3.5-5.1) 03/23/20 06:40 Chloride 106 mmol/L (98-107) 03/23/20 06:40 Carbon Dioxide 27.8 mmol/L (21.0-32.0) 03/23/20 06:40 Anion Gap 6.2 mmol/L (3-11) 03/23/20 06:40 BUN 8 mg/dL (7-18) 03/23/20 06:40 Creatinine 0.80 mg/dL (0.55-1.02) 03/23/20 06:40 Estimated GFR/1.73 m2 >= 60.00 (mL/min/1.73m2) 03/23/20 06:40 Glucose 99 mg/dL (74-106) 03/23/20 06:40 Lactate 0.5 mmol/L (0.6-1.4) L 03/22/20 17:45 Calcium 7.9 mg/dL (8.5-10.1) L 03/23/20 06:40 Magnesium 1.8 mg/dL (1.8-2.4) 03/23/20 06:40 Total Bilirubin 0.5 mg/dL (0.2-1.0) 03/21/20 12:35 AST 49 U/L (15-37) H 03/22/20 06:40 ALT 43 U/L (14-59) 03/21/20 12:35 Alkaline Phosphatase 80 U/L (46-116) 03/21/20 12:35 Troponin I 0.16 ng/mL (<0.06) H* 03/23/20 06:40 C-Reactive Protein 11.79 mg/dL (0.0-0.3) H 03/23/20 06:40 Total Protein 7.8 g/dL (6.4-8.2) 03/21/20 12:35 Albumin 3.5 g/dL (3.4-5.0) 03/21/20 12:35 Procalcitonin 1.7 ng/mL 03/22/20 06:40 Urine Color Yellow (Yellow) 03/21/20 13:20 Urine Clarity Clear (Clear) 03/21/20 13:20 Urine pH 7.0 (5-8) 03/21/20 13:20 Ur Specific [place] 1.020 (1.005-1.025) 03/21/20 13:20 Urine Protein 30 mg/dL (Negative) H 03/21/20 13:20 Urine Ketones 15 mg/dL (Negative) H 03/21/20 13:20 Urine Blood Trace-intact (Negative) H 03/21/20 13:20 Urine Nitrite Negative (Negative) 03/21/20 13:20 Urine Bilirubin Negative (Negative) 03/21/20 13:20 Urine Urobilinogen 0.2 EU/dL (Up TO 0.2) 03/21/20 13:20 Ur Leukocyte Esterase Negative (Negative) 03/21/20 13:20 Urine RBC 3-5 HPF (0-2) H 03/21/20 13:20 Urine WBC 3-5 HPF (0-5) 03/21/20 13:20 Ur Epithelial Cells Rare HPF (Negative) 03/21/20 13:20 Urine Crystals Negative HPF (Negative) 03/21/20 13:20 Urine Bacteria Few HPF (Negative) 03/21/20 13:20 Urine Casts 0-2 fine granular LPF (Negative) 03/21/20 13:20 Urine Mucus Negative (Negative) 03/21/20 13:20 Urine Other Rare renal (Negative) 03/21/20 13:20 Ur Culture Indicated? No 03/21/20 13:20 Urine Glucose Negative mg/dL (Negative) 03/21/20 13:20 Lyme Disease Antibody Negative (Negative) 03/21/20 14:38 COVID-19 PCR Negative (Negative) 03/21/20 14:45 Nasopharyn COVID-19 PCR Not Applicable 03/21/20 14:45 Ref Test Perform Site [facility] lab 03/21/20 14:45 Echo: LVEF 60%, no wall motion abnormalities or valvular pathology.
[2020-03-23] MEDS: Multivitamin w/Minerals TAB 1 TAB PO (08:59)
[2020-03-23] MEDS: Aspirin E.C. 81 MG TABEC PO (08:59)
--- NOTE | 2020-03-23 09:09 | CMPROGNOTE_ITS ---
- If Service Date Differs Date of service: 03/23/20 Time of Service: 09:09 Care Management Progress Note S/O:Jazmin remains ICU level of care. If she is discharged home [facility] is willing to provide her with a follow up appointment. Awaiting disposition before establishing care with [facility]. If she is discharged home they should be contacted to schedule hospital follow up. A: Jazmin is a 65 year old female admitted with Fever. P: CM contacted [facility] and they have agreed to see her post hospital discharge. Jazmin may be transferred to tertiary center pending cardiology consult and assessment.
[2020-03-23] MEDS: Lactated Ringers 1,000 ML 150 ML IV (09:12)
[2020-03-23] MEDS: Pantoprazole 40 MG VIAL IVP (14:08)
[2020-03-23] MEDS: Enoxaparin 40 MG/0.4 ML SYR SC (14:09)
--- NOTE | 2020-03-23 14:22 | PHA.REVIEW ---
Pharmacy Admission Review - Admission Clinical Review (Last Reviewed 03/21/20 @ 18:06 by Thad Lyon MD) Hypotension (Acute) Discharge planning issues (Acute) DVT prophylaxis (Acute) COVID-19 ruled out by laboratory testing (Acute) Elevated troponin (Acute) Sepsis (Acute) Fever (Acute) Penicillins Allergy (Unknown, Unverified 03/21/20 12:12) Height 5 ft 5 in Weight 57 kg - Renal Dosing Renal Dosing: BUN 8 mg/dL (7-18) 03/23/20 06:40 Creatinine 0.80 mg/dL (0.55-1.02) 03/23/20 06:40 Medications needing adjustments: Reviewed - Anticoagulation Anticoagulation: Hgb 11.0 g/dL (12.0-15.5) L 03/23/20 06:40 Hct 33.0 % (36.0-46.0) L 03/23/20 06:40 Plt Count 120 x1000/uL (130-400) L 03/23/20 06:40 INR 1.1 (0.9-1.1) 03/22/20 13:19 Creatinine 0.80 mg/dL (0.55-1.02) 03/23/20 06:40 DVT Prohphylaxis: Reviewed Medications: Enoxaparin Therapeutic Anticoagulation: Reviewed Medications: Aspirin - Opiate Usage Evaluate Pain Scale/Pains Meds: N/A - Relevant Labs Sodium 140 mmol/L (136-145) 03/23/20 06:40 Potassium 3.7 mmol/L (3.5-5.1) 03/23/20 06:40 Chloride 106 mmol/L (98-107) 03/23/20 06:40 Magnesium 1.8 mg/dL (1.8-2.4) 03/23/20 06:40 C-Reactive Protein 11.79 mg/dL (0.0-0.3) H 03/23/20 06:40 - DM Control DM Control: Glucose 99 mg/dL (74-106) 03/23/20 06:40 Insulin Dosing: Reviewed - Heart Failure/NJ Heart Failure/NJ: Troponin I 0.16 ng/mL (<0.06) H* 03/23/20 06:40 EF%, ALICE's, B-Blockers, Diuretics: Reviewed - BP Control BP Control: Blood Pressure 117/76 Blood Pressure 101/61 Blood Pressure 104/62 Blood Pressure 109/66 Blood Pressure 99/58 Blood Pressure 93/51 Blood Pressure 100/49 Blood Pressure 98/67 Blood Pressure 103/64 Blood Pressure 99/50 Blood Pressure 96/56 If elevated: N/A - Qtc Review If Elevated: Reviewed (QTc 440) - IV to PO Switch IV Medications: Reviewed - Home Meds Home Med List reviewed: Reviewed - Current meds Current Medication Order Review: Reviewed
[2020-03-23] MEDS: Lactated Ringers 1,000 ML 75 ML IV (20:20)
[2020-03-23 22:58] LABS: Anaplasma phagocytophilum Negative (Negative); B. miyamotoi PCR Negative (Negative); Babesia divergens/MO-1 Negative (Negative); Babesia duncani Negative (Negative); Babesia microti Negative (Negative); Ehrlichia chaffeensis Negative (Negative); Ehrlichia ewingii/canis Negative (Negative); Ehrlichia muris eauclairensis Negative (Negative)
[2020-03-24] VITALS (22 sets, daily range): BP systolic 93–107; BP diastolic 58–68; PULSE 42–70; RESP 10–22; TEMP 36.4; O2SAT 97
[2020-03-24] MEDS: CEFEPIME 1 GM in Normal Saline 50 ML IVPB ×2 (02:00→08:30)
[2020-03-24 07:02] LABS: HCT 36.5 % (36.0-46.0); HGB 12.3 g/dL (12.0-15.5); Mean Corp. HGB Concentration 33.7 g/dL (32.0-36.0); Mean Corpuscular Hemoglobin 29.8 pg (27.0-33.0); Mean Corpuscular Volume 88.4 fL (80-95); Mean Platelet Volume 10.8 fL (8.0-11.0); Platelet Count 168 x1000/uL (130-400); RBC 4.13 m/cumm (4.00-5.20); RBC Distribution Width 12.7 % (11.7-14.6)
[2020-03-24 07:03] LABS: Vancomycin, Trough 15.8 ug/mL (10.0-20.0)
[2020-03-24 07:05] LABS: Anion Gap 5.6 mmol/L (3-11); BUN 12 mg/dL (7-18); C-Reactive Protein 7.76 mg/dL (0.0-0.3); CO2 29.4 mmol/L (21.0-32.0); CREATININE 0.89 mg/dL (0.55-1.02); Calcium 8.8 mg/dL (8.5-10.1); Chloride 105 mmol/L (98-107); Glucose 95 mg/dL (74-106); Magnesium 1.9 mg/dL (1.8-2.4); Potassium 3.8 mmol/L (3.5-5.1); Sodium 140 mmol/L (136-145)
[2020-03-24 07:08] LABS: Troponin I 0.08 ng/mL (<0.06)
[2020-03-24 07:22] LABS: Calculated LDL 97 mg/dL (<100); Cholesterol 158 mg/dL (<200); HDL Cholesterol 23 mg/dL (40-60); Triglyceride 193 mg/dL (<150)
[2020-03-24 07:54] LABS: Absolute Eosinophil Count 0.14 k/cumm (0.0-0.7); Absolute Lymphocyte Count 1.37 k/cumm (1.2-3.4); Absolute Monocyte Count 0.18 k/cumm (0.11-0.7); Absolute Neutrophil Count 1.82 k/cumm (1.2-6.7); Atypical Lymphocytes % 3; Diff Comment Manual Differential; Promyelocytes % 0 %
[2020-03-24 07:55] LABS: RBC Morphology Normal
[2020-03-24 08:01] LABS: ESR 60 mm/hr (0-30)
--- NOTE | 2020-03-24 08:20 | W.PM.PROGNOT ---
Subjective Subjective Interval history since last seen: . Wants to go home. Objective Objective Clinical Data: Abnormal lab results 03/24/20 03/24/20 Range/Units 06:40 06:40 WBC 3.50 L (4.4-10.8) k/cumm ESR 60 H (0-30) mm/hr Troponin I 0.08 H* (<0.06) ng/mL C-Reactive Protein 7.76 H (0.0-0.3) mg/dL Triglycerides 193 H (<150) mg/dL HDL Cholesterol 23 L (40-60) mg/dL Vital Signs Temperature 36.6 C 03/23/20 17:38 Temperature Source Temporal Artery Scan 03/23/20 17:38 Pulse 60 03/24/20 08:00 Pulse Rhythm Regular 03/24/20 00:56 Pulse 61 03/24/20 08:01 Respiratory Rate 15 03/24/20 08:01 Respiratory Effort 03/24/20 00:56 Respiratory Depth Normal 03/24/20 00:56 Respiratory Pattern Normal 03/24/20 00:56 Blood Pressure 102/68 03/24/20 08:00 Blood Pressure Mean 74 03/24/20 08:00 Blood Pressure Position Supine 03/23/20 17:38 Pulse Oximetry 97 03/23/20 03:10 Oxygen Delivery Method Room Air 03/23/20 17:38 Oxygen Flow Rate 0 03/23/20 17:38 Pain Level 3 03/23/20 21:01 Comment temporal 03/21/20 15:05 Intake & Output 03/23/20 03/23/20 03/24/20 11:59 23:59 11:59 Intake Total 2250 / 3420.0 1170.0 / 3420.0 500 / 500 Output Total 1650 / 3350 1700 / 3350 3000 / 3000 Balance 600 / 70.0 -530 / 70.0 -2500 / -2500 Weight 57 kg 58.1 kg Intake: IV 1550 / 2600.0 1050.0 / 2600.0 500 / 500 Oral 700 / 820 120 / 820 Output: Urine 1650 / 3350 1700 / 3350 3000 / 3000 Other: Urine Color Yellow Yellow Yellow Light Aggie Urine Appearance Clear Clear Clear Urine Odor None Comment Void 150cc clear yellow urine. Voiding frequently clear yellow urine. collective voided amount over night Stool Occult Blood Negative Stool Size Moderate Moderate Stool Characteristics Soft Brown Voiding Methods Bedside Commode Bedside Commode Laboratory Results WBC 3.50 k/cumm (4.4-10.8) L 03/24/20 06:40 RBC 4.13 m/cumm (4.00-5.20) 03/24/20 06:40 Hgb 12.3 g/dL (12.0-15.5) 03/24/20 06:40 Hct 36.5 % (36.0-46.0) 03/24/20 06:40 MCV 88.4 fL (80-95) 03/24/20 06:40 MCH 29.8 pg (27.0-33.0) 03/24/20 06:40 MCHC 33.7 g/dL (32.0-36.0) 03/24/20 06:40 RDW 12.7 % (11.7-14.6) 03/24/20 06:40 Plt Count 168 x1000/uL (130-400) 03/24/20 06:40 MPV 10.8 fL (8.0-11.0) 03/24/20 06:40 Immature Gran % See Differential 03/24/20 06:40 Neutrophils % 52.0 03/24/20 06:40 Lymphocytes % 36.0 03/24/20 06:40 Atypical Lymphs % 3 03/24/20 06:40 Monocytes % 5.0 03/24/20 06:40 Eosinophils % 4.0 03/24/20 06:40 Basophils % 0.0 03/24/20 06:40 Metamyelocytes % 0.0 % 03/24/20 06:40 Myelocytes % 0.0 % 03/24/20 06:40 Promyelocytes % 0 % 03/24/20 06:40 Absolute Neutrophils 1.82 k/cumm (1.2-6.7) 03/24/20 06:40 Absolute Lymphocytes 1.37 k/cumm (1.2-3.4) 03/24/20 06:40 Absolute Monocytes 0.18 k/cumm (0.11-0.7) 03/24/20 06:40 Absolute Eosinophils 0.14 k/cumm (0.0-0.7) 03/24/20 06:40 Absolute Basophils 0.00 k/cumm (0.0-0.2) 03/24/20 06:40 Differential Comment Manual differential 03/24/20 06:40 RBC Morphology Normal 03/24/20 06:40 ESR 60 mm/hr (0-30) H 03/24/20 06:40 PT 11.1 sec (9.3-11.0) H 03/22/20 13:19 INR 1.1 (0.9-1.1) 03/22/20 13:19 APTT 30.5 sec (21.0-31.4) 03/22/20 13:19 D-Dimer 1535 ng/mlFEU (<500) H 03/22/20 13:19 Sodium 140 mmol/L (136-145) 03/24/20 06:40 Potassium 3.8 mmol/L (3.5-5.1) 03/24/20 06:40 Chloride 105 mmol/L (98-107) 03/24/20 06:40 Carbon Dioxide 29.4 mmol/L (21.0-32.0) 03/24/20 06:40 Anion Gap 5.6 mmol/L (3-11) 03/24/20 06:40 BUN 12 mg/dL (7-18) 03/24/20 06:40 Creatinine 0.89 mg/dL (0.55-1.02) 03/24/20 06:40 Estimated GFR/1.73 m2 >= 60.00 (mL/min/1.73m2) 03/24/20 06:40 Glucose 95 mg/dL (74-106) 03/24/20 06:40 Lactate 0.5 mmol/L (0.6-1.4) L 03/22/20 17:45 Calcium 8.8 mg/dL (8.5-10.1) 03/24/20 06:40 Magnesium 1.9 mg/dL (1.8-2.4) 03/24/20 06:40 Total Bilirubin 0.5 mg/dL (0.2-1.0) 03/21/20 12:35 AST 49 U/L (15-37) H 03/22/20 06:40 ALT 43 U/L (14-59) 03/21/20 12:35 Alkaline Phosphatase 80 U/L (46-116) 03/21/20 12:35 Troponin I 0.08 ng/mL (<0.06) H* 03/24/20 06:40 C-Reactive Protein 7.76 mg/dL (0.0-0.3) H 03/24/20 06:40 Total Protein 7.8 g/dL (6.4-8.2) 03/21/20 12:35 Albumin 3.5 g/dL (3.4-5.0) 03/21/20 12:35 Triglycerides 193 mg/dL (<150) H 03/24/20 06:40 Total Cholesterol 158 mg/dL (<200) 03/24/20 06:40 LDL Cholesterol, Calc 97 mg/dL (<100) 03/24/20 06:40 HDL Cholesterol 23 mg/dL (40-60) L 03/24/20 06:40 Procalcitonin 1.7 ng/mL 03/22/20 06:40 Urine Color Yellow (Yellow) 03/21/20 13:20 Urine Clarity Clear (Clear) 03/21/20 13:20 Urine pH 7.0 (5-8) 03/21/20 13:20 Ur Specific [place] 1.020 (1.005-1.025) 03/21/20 13:20 Urine Protein 30 mg/dL (Negative) H 03/21/20 13:20 Urine Ketones 15 mg/dL (Negative) H 03/21/20 13:20 Urine Blood Trace-intact (Negative) H 03/21/20 13:20 Urine Nitrite Negative (Negative) 03/21/20 13:20 Urine Bilirubin Negative (Negative) 03/21/20 13:20 Urine Urobilinogen 0.2 EU/dL (Up TO 0.2) 03/21/20 13:20 Ur Leukocyte Esterase Negative (Negative) 03/21/20 13:20 Urine RBC 3-5 HPF (0-2) H 03/21/20 13:20 Urine WBC 3-5 HPF (0-5) 03/21/20 13:20 Ur Epithelial Cells Rare HPF (Negative) 03/21/20 13:20 Urine Crystals Negative HPF (Negative) 03/21/20 13:20 Urine Bacteria Few HPF (Negative) 03/21/20 13:20 Urine Casts 0-2 fine granular LPF (Negative) 03/21/20 13:20 Urine Mucus Negative (Negative) 03/21/20 13:20 Urine Other Rare renal (Negative) 03/21/20 13:20 Ur Culture Indicated? No 03/21/20 13:20 Urine Glucose Negative mg/dL (Negative) 03/21/20 13:20 Stl C.difficile Tox PCR Cancelled 03/23/20 15:10 Vancomycin Trough 15.8 ug/mL (10.0-20.0) 03/24/20 06:40 A.phagocytophil DNA PCR Negative (Negative) 03/21/20 14:38 B. divergens/MO-1 PCR Negative (Negative) 03/21/20 14:38 Babesia duncani (PCR) Negative (Negative) 03/21/20 14:38 Babesia microti DNA PCR Negative (Negative) 03/21/20 14:38 Borrelia (PCR) Negative (Negative) 03/21/20 14:38 Lyme Disease Antibody Negative (Negative) 03/21/20 14:38 COVID-19 PCR Negative (Negative) 03/21/20 14:45 Nasopharyn COVID-19 PCR Not Applicable 03/21/20 14:45 E.chaffeensis DNA (PCR) Negative (Negative) 03/21/20 14:38 E.ewingii/canis DNA PCR Negative (Negative) 03/21/20 14:38 E. muris-like DNA (PCR) Negative (Negative) 03/21/20 14:38 Ref Test Perform Site [facility] lab 03/21/20 14:45
[2020-03-24] MEDS: Multivitamin w/Minerals TAB 1 TAB PO (08:35)
[2020-03-24] MEDS: Aspirin E.C. 81 MG TABEC PO (08:35)
--- NOTE | 2020-03-24 09:46 | PDOC.CMPRO ---
Care Management Progress Note S/O: Jazmin remains ICU level of care. If she is discharged home [facility] is willing to provide her with a follow up appointment. Awaiting disposition before establishing care with [facility]. If she is discharged home they should be contacted to schedule hospital follow up. A: Jazmin is a 65 year old female admitted to [facility] 03/22/20 with Fever. P: Jazmin will follow up with [facility]; new PCP as well as cardiology. GRANT contacted [facility] and they have agreed to see her post hospital discharge. Jazmin may be transferred to tertiary center pending cardiology consult and assessment.
--- NOTE | 2020-03-24 10:23 | CMDISCH_ITS ---
LACE Index Scoring Tool - Questions: Length of Stay (in days): 2 Acuity (Admit via E.D.?): Yes E.D. Visits: 1 - Answers: Total Score: 6 Risk of Readmission: Low Risk Care Management Discharge Reason for Hospitalization: Fever Discharge Plan: Jazmin will follow up with [facility] to establish with a new PCP. Anticipate she will follow up with cardiology as well. Jazmin will transport via private vehicle with her family. Patient/Family Education Needs: Review discharge instructions, discuss Ask Me Three.
[2020-03-24 10:52] LABS: Campylobacter PCR Negative (Negative); Salmonella PCR Negative (Negative); Shiga Toxin PCR Negative (Negative); Shigella/Enteroinvasive Ecoli Negative (Negative)
--- NOTE | 2020-03-24 11:53 | W.NUTRFU ---
Date of service: 03/24/20 Time of Service: 11:53 Nutritional Follow up NOTE: 65year old female admitted to ICU with SOB, NSTEMI, hypotension with possible endocarditis. BMI wnl. Labs/Meds reviewed. Following regular meal plan with adequate intake. Skin intact. BMI wnl and stable. No concerns with swallowing/chewing. Not at risk for nutritional decline at this time. Will follow prn. Time Spent in Nutritional Counseling and Treatment: 0 time spent face to face
--- NOTE | 2020-03-24 13:56 | W.PM.DS.N ---
Date of service: 03/24/20 Time of Service: 13:56 DS: Diagnosis Discharge Diagnosis (1) Sepsis: Status: Resolved Asessment and Plan: Sournce not identified (2) NSTEMI (non-ST elevated myocardial infarction): Status: Resolved (3) Hypotension: Status: Resolved (4) COVID-19 ruled out by laboratory testing: Status: Acute Discharge Plan Disposition Patient Disposition: HOME Condition: Stable Discharge Details Chief Complaint: Fever Reason For Visit: FEVER Admit Date/Time: 03/22/20 11:55 Admit Provider: Thad Lyon Attending Provider: Jessika Recio Primary Care Provider: None,None ED Provider: Manisha Gonzalez Hospital Course Hospital Course: Ms Rucker is a 65 year old female with no significant past medical history aside from a hepatoma, resected in 1981 with no recurrence, who was admitted to [facility] under the hospitalist service on 03/21/2020 for a fever accompanied by hypotension and constitutional symptoms. COVID-19 was ruled out with a negative nasopharyngeal swab, and her procalcitonin was elevated, suggesting that the process might be bacterial. Blood cultures were collected, and patient was initiated on empiric vancomycin and cefepime. The patient's hypotension warranted a transfer to the ICU on 03/22/2020 until 03/23/2020 for more careful observation while aggressively hydrating. The patient's hypotension resolved with the IV fluids and above antibiotics, and she never required vasopressors or had an elevated lactate. She did have an elevated troponin (of up to 0.44), felt to be due to a type 2 NSTEMI in setting of the stress/demand of what appears to have been impending septic shock vs myocarditis. There were no EKG changes. The patient had had dental cleaning on 03/09/2020, but ruled out for bacterial endocarditis with negative blood cultures and a normal transthoracic echocardiogram. Both cardiology and ID were consulted. Per cardiology, the patient would benefit from an outpatient MPI and for now is to stay on baby aspirin. Per [facility] ID, since the patient was improving on current antibiotics, she was recommended to be switched to oral antibiotics (we will go with cefpodoxime x 1 week). After she completes this course, the recommendation was to wait 1 week and to repeat blood cultures to ensure that nothing was missed. As far as imaging, the patient had a suggestion of mild colitis on CT, but never had diarrhea, though she had several soft stools in the hospital. She did not have any abdominal pain or nausea, and her GI symptoms did not start until being initiated on antibiotics here. Stool studies were sent regardless, due to lack of any other source of possible infection. C.Diff screen came back intermediate, but the patient's clinical course (improvement with IV vancomycin/cefepime) does not match the diagnosis of C.Diff. Stool PCR as well as cultures are still pending, but her GI symptoms have entirely resolved by the time of discharge. I do not feel that C.Diff directed therapy is indicated, based on that. We would like for the patient to follow up with her PCP on Saturday, March 28, for results of the stool studies. Care for patient as well as preparation of her discharge summary took 45 minutes to complete. Home Meds and New Rx's Prescriptions: New cefpodoxime 200 mg Tablet 200 mg PO BID Qty: 14 RF: 0 aspirin 81 mg Tablet,Delayed Release (Dr/Ec) 81 mg PO DAILY Qty: 30 RF: 0 Continued Daily Multiple 1 EACH tablet 1 ea PO DAILY RF: 0 Eye Cap 1 cap PO DAILY AM RF: 0 Women's Calcium RF: 0 Discharge Instructions Instructions: Cefpodoxime Proxetil (By mouth), Nuclear Stress Test (DC) Additional Instructions: Finish you antibiotics as prescribed. Return to the hospital with any worsening, fever, bleeding, chest pain, or shortness of breath. Follow up with your PCP next Saturday. Follow up for an MPI and with Dr Li. Eat yogurt twice a day. Referrals: Thad Li MD [ CONSULTING PHYSICIAN] - Activity:: Activity as Tolerated Equipment/Supplies:: No Equipment Needed Diet:: As Tolerated Discharge Orders Discharge Orders: Discharge Order (Routine); Ordered 03/24/20 Ordered By: Jessika Recio DS: Summary Status at Discharge Functional status at discharge: independent ambulation Overall status at discharge: patient is back to baseline Mental Status: mental status grossly normal Speech and Movement: speech and movement normal Mood: congruent mood Affect: normal affect Exam Narrative Exam Narrative: General: Pleasant, middle-aged female, appearing younger than stated age, A&Ox3, looks well HEENT: EOMI, MMM Heart: RRR, no m/r/g Lungs: CTAB Abdomen: soft, nontender, nondistended Extremities: no e/c/c BLE's Psych Mental Status: mental status grossly normal Speech and Movement: speech and movement normal Mood: congruent mood Affect: normal affect DS: Data Vitals/I&O Vitals and I&O: Vital Signs Temperature 36.4 C L 03/24/20 08:15 Temperature Source Temporal Artery Scan 03/24/20 08:15 Pulse 55 L 03/24/20 08:16 Pulse Rhythm Regular 03/24/20 08:15 Pulse 68 03/24/20 12:00 Respiratory Rate 16 03/24/20 12:00 Respiratory Effort Non-Labored 03/24/20 08:15 Respiratory Depth Normal 03/24/20 08:15 Respiratory Pattern Normal 03/24/20 08:15 Blood Pressure 101/64 03/24/20 08:16 Blood Pressure Mean 71 03/24/20 08:16 Blood Pressure Position Supine 03/23/20 17:38 Pulse Oximetry 97 03/23/20 03:10 Oxygen Delivery Method Room Air 03/23/20 17:38 Oxygen Flow Rate 0 03/23/20 17:38 Pain Level 3 03/23/20 21:01 Comment temporal 03/21/20 15:05 Intake & Output 03/23/20 03/24/20 03/24/20 23:59 11:59 23:59 Intake Total 1170.0 / 3420.0 1890 / 2090 200 / 2090 Output Total 1700 / 3350 3250 / 3250 Balance -530 / 70.0 -1360 / -1160 200 / -1160 Weight 58.1 kg Intake: IV 1050.0 / 2600.0 1650 / 1650 Oral 120 / 820 240 / 440 200 / 440 Output: Urine 1700 / 3350 3250 / 3250 Other: Urine Color Yellow Yellow Urine Appearance Clear Clear Comment Voiding frequently clear yellow urine. collective voided amount over night Stool Occult Blood Positive Stool Size Moderate Moderate Stool Characteristics Soft Voiding Methods Bedside Commode Bedside Commode Data Completed and Pending Completed studies during hospitalization [Text1]: CXR: No acute pulmonary findings. CTA chest/abdomen/pelvis: No evidence of acute vascular abnormality of the chest, abdomen or pelvis. No evidence of pulmonary embolic disease. Findings raising the possibility GI inflammatory/infectious process with possible signs of colitis and duodenitis. Please correlate clinically. Echo: Left Ventricle The left ventricle is normal size. The left ventricular systolic function is normal. The left ventricular ejection fraction is within the normal range. There is normal left ventricular wall thickness. There is normal LV segmental wall motion. There is no ventricular septal defect visualized. LVEF is 60%. Right Ventricle The right ventricle is normal size. The right ventricular systolic function is normal. The RVSP is 21.6 mmHg. Atria The left atrium size is normal. The right atrium size is normal. The interatrial septum is intact with no evidence for an atrial septal defect. Aortic Valve The aortic valve is normal in structure. Aortic valve is trileaflet. There is no aortic valvular stenosis. No aortic regurgitation is present. There is no aortic valvular vegetation. Mitral Valve The mitral valve is normal in structure. No evidence of mitral valve stenosis. Trace mitral regurgitation. There is no evidence of mitral valve vegetations. Tricuspid Valve The tricuspid valve is normal in structure. There is no tricuspid valve stenosis. Trace tricuspid regurgitation. There is no tricuspid valve vegetations. Pulmonic Valve The pulmonary valve is normal in structure. There is no pulmonic valvular stenosis. Trace pulmonic regurgitation. There is no pulmonic valve vegetations. Great Vessels The aortic root is normal in size. The ascending aorta is mildly dilated. Aortic arch is normal in caliber. IVC is normal in size and collapses >50% with inspiration. Pericardium There is no pericardial effusion. There is no pleural effusion. Labs on day of discharge: Labs from last 24 hours 03/24/20 03/24/20 03/24/20 06:40 06:40 06:40 WBC 3.50 L RBC 4.13 Hgb 12.3 Hct 36.5 MCV 88.4 MCH 29.8 MCHC 33.7 RDW 12.7 Plt Count 168 MPV 10.8 Immature Gran % See Differential Neutrophils % 52.0 Lymphocytes % 36.0 Atypical Lymphs % 3 Monocytes % 5.0 Eosinophils % 4.0 Basophils % 0.0 Metamyelocytes % 0.0 Myelocytes % 0.0 Promyelocytes % 0 Absolute Neutrophils 1.82 Absolute Lymphocytes 1.37 Absolute Monocytes 0.18 Absolute Eosinophils 0.14 Absolute Basophils 0.00 Differential Comment Manual differential RBC Morphology Normal ESR 60 H Sodium 140 Potassium 3.8 Chloride 105 Carbon Dioxide 29.4 Anion Gap 5.6 BUN 12 Creatinine 0.89 Estimated GFR/1.73 m2 >= 60.00 Glucose 95 Calcium 8.8 Magnesium 1.9 Troponin I 0.08 H* C-Reactive Protein 7.76 H Triglycerides 193 H Total Cholesterol 158 LDL Cholesterol, Calc 97 HDL Cholesterol 23 L Stool Description Stool Campylobacter PCR Stl C.difficile Tox PCR Stool Salmonella PCR Stool Shigella PCR Stool Ova & Parasites Vancomycin Trough 15.8 A.phagocytophil DNA PCR B. divergens/MO-1 PCR Babesia duncani (PCR) Babesia microti DNA PCR Borrelia (PCR) E.chaffeensis DNA (PCR) E.ewingii/canis DNA PCR E. muris-like DNA (PCR) Shiga Toxin (PCR) 03/23/20 03/23/20 03/23/20 15:10 15:10 15:10 WBC RBC Hgb Hct MCV MCH MCHC RDW Plt Count MPV Immature Gran % Neutrophils % Lymphocytes % Atypical Lymphs % Monocytes % Eosinophils % Basophils % Metamyelocytes % Myelocytes % Promyelocytes % Absolute Neutrophils Absolute Lymphocytes Absolute Monocytes Absolute Eosinophils Absolute Basophils Differential Comment RBC Morphology ESR Sodium Potassium Chloride Carbon Dioxide Anion Gap BUN Creatinine Estimated GFR/1.73 m2 Glucose Calcium Magnesium Troponin I C-Reactive Protein Triglycerides Total Cholesterol LDL Cholesterol, Calc HDL Cholesterol Stool Description Not Applicable Stool Campylobacter PCR Negative Stl C.difficile Tox PCR Pending Cancelled Stool Salmonella PCR Negative Stool Shigella PCR Negative Stool Ova & Parasites See below Vancomycin Trough A.phagocytophil DNA PCR B. divergens/MO-1 PCR Babesia duncani (PCR) Babesia microti DNA PCR Borrelia (PCR) E.chaffeensis DNA (PCR) E.ewingii/canis DNA PCR E. muris-like DNA (PCR) Shiga Toxin (PCR) Negative 03/21/20 14:38 WBC RBC Hgb Hct MCV MCH MCHC RDW Plt Count MPV Immature Gran % Neutrophils % Lymphocytes % Atypical Lymphs % Monocytes % Eosinophils % Basophils % Metamyelocytes % Myelocytes % Promyelocytes % Absolute Neutrophils Absolute Lymphocytes Absolute Monocytes Absolute Eosinophils Absolute Basophils Differential Comment RBC Morphology ESR Sodium Potassium Chloride Carbon Dioxide Anion Gap BUN Creatinine Estimated GFR/1.73 m2 Glucose Calcium Magnesium Troponin I C-Reactive Protein Triglycerides Total Cholesterol LDL Cholesterol, Calc HDL Cholesterol Stool Description Stool Campylobacter PCR Stl C.difficile Tox PCR Stool Salmonella PCR Stool Shigella PCR Stool Ova & Parasites Vancomycin Trough A.phagocytophil DNA PCR Negative B. divergens/MO-1 PCR Negative Babesia duncani (PCR) Negative Babesia microti DNA PCR Negative Borrelia (PCR) Negative E.chaffeensis DNA (PCR) Negative E.ewingii/canis DNA PCR Negative E. muris-like DNA (PCR) Negative Shiga Toxin (PCR) Preliminary micro results at discharge 03/21/20 14:38 Blood Culture - Preliminary Blood NO GROWTH 48 HOURS 03/21/20 14:25 Blood Culture - Preliminary Blood NO GROWTH 48 HOURS PFSH Medical History (Updated 03/24/20 @ 14:02 by Jessika Recio MD) Hepatoma (Acute) s/p left hepatic lobectomy in 1981, no problems since Surgical History (Updated 03/24/20 @ 14:02 by Jessika Recio MD) section x3. History of resection of liver (Acute) Social History Smoking/Tobacco Use Status: Never Second Hand Exposure: Yes Alcohol Intake: never Drug use: Never Household members: spouse Number of Children: 3 Seatbelt use: always Do you feel safe at home: Yes Do you feel safe in your relationship?: Yes Female Reproductive History Menstrual Menopause type: natural
[2020-03-24] MEDS: Cefpodoxime 200 MG TAB PO (15:10)
[2020-03-24 15:16] LABS: Procalcitonin 0.6 ng/mL
[2020-03-25 08:24] LABS: C Difficile PCR Positive (Negative)
== END 2020-03-24 15:55 | disposition home or self-care (01) | DRG 871 ==
LOC: ER 17:35 → ICU 20:31
PROVIDERS: Physician Assistant; Admitting Provider General Practice; Emergency Provider Student in an Organized Health Care Education/Training Program; Visit Provider Internal Medicine
DX: A41.9 Sepsis, unspecified organism (principal); I21.A1 Myocardial infarction type 2; Z88.0 Allergy status to penicillin; D72.810 Lymphocytopenia
CPT/HCPCS: 36415; 71275; 74177; 80048; 80053; 80061; 84145; 85652; 87040; 87505; 87798; 87880; 93005; 96361; 96365; 96375; 99222; 99233; 99239; 99254; 99285; 99291; J1650; U0003; 71045; 80202; 81003; 81015; 83605; 83735; 84450; 84484; 85025; 85379; 85610; 85730; 86140; 86618; 87081; 87177; 87324; 93010; 93306; 99218; 99284; J2405; J3370; J3490

== ENCOUNTER 2020-04-07 01:36 | Outpatient (CLI) | payer MEDICARE, OTHER, SELFPAY ==
[2020-04-07 09:22] LABS: Abs Immature Grans 0.01 k/cumm (0.0-0.09); Absolute Basophil Count 0.02 k/cumm (0.0-0.2); Absolute Eosinophil Count 0.12 k/cumm (0.0-0.7); Absolute Lymphocyte Count 1.47 k/cumm (1.2-3.4); Absolute Monocyte Count 0.29 k/cumm (0.11-0.7); Absolute Neutrophil Count 4.01 k/cumm (1.2-6.7); Basophils % 0.3; HCT 39.7 % (36.0-46.0); Immature Grans % 0.2 %; Lymphocytes % 24.8; Mean Corp. HGB Concentration 32.7 g/dL (32.0-36.0); Mean Corpuscular Hemoglobin 29.9 pg (27.0-33.0); Mean Corpuscular Volume 91.3 fL (80-95); Mean Platelet Volume 9.6 fL (8.0-11.0); Monocytes % 4.9; Neutrophils % 67.8; Platelet Count 310 x1000/uL (130-400); RBC 4.35 m/cumm (4.00-5.20); RBC Distribution Width 13.7 % (11.7-14.6); White Blood Cell Count 5.92 k/cumm (4.4-10.8)
[2020-04-07 09:52] LABS: C-Reactive Protein 0.24 mg/dL (0.0-0.3)
[2020-04-07 10:00] LABS: ESR 29 mm/hr (0-30)
== END 2020-04-07 01:56 ==
PROVIDERS: PCP Family Medicine; Visit Provider Nurse Practitioner Adult Health
DX: A41.9 Sepsis, unspecified organism (principal); D72.819 Decreased white blood cell count, unspecified; R70.0 Elevated erythrocyte sedimentation rate; R79.82 Elevated C-reactive protein (CRP); R50.9 Fever, unspecified
CPT/HCPCS: 36415; 85652; 87040; 85025; 86140

== ENCOUNTER 2020-04-07 14:03 | Outpatient (CLI) | payer MEDICARE, OTHER, SELFPAY | END 2020-04-07 14:23 | PROVIDERS: PCP Family Medicine; Visit Provider Nurse Practitioner Adult Health | DX: A04.72 Enterocolitis due to Clostridium difficile, not specified as recurrent (principal); R50.9 Fever, unspecified; D72.819 Decreased white blood cell count, unspecified | CPT/HCPCS: 36415; 85652; 87040; 85025; 86140 ==

== ENCOUNTER 2020-04-18 01:26 | Outpatient (CLI) | payer MEDICARE, OTHER, SELFPAY ==
--- NOTE | 2020-04-18 07:00 | DI.NM_ITS ---
APPROVED REPORT Exam: Exercise Treadmill Patient Location: Out-Patient Room/Bed: Stress Nurse: Seble Nina RN BMI: 20.49 Baseline Rhythm: Sinus Rhythm, APC's Indications: elevated troponin during sepsis event Medical History Medical History: No history of CAD Cardiac Medications: Aspirin Allergies: Penicillin Pretest Chest Pain Characteristics: No chest pain Exercise History: Physically active Lung Sounds: Clear to auscultation Heart Sounds: Regular Stress Test Details Test: Exercise stress testing was performed using a Thom protocol. Nuclear Acquisition: Rest Tc-99m/Stress Tc-99m 1 day Rest Isotope: Tc-99m Sestamibi. Dose: 10.5 Date: 04/18/2020 Injection Time: 1040 Stress Isotope: Tc-99m Sestamibi. Dose: 32 Date: 04/18/2020 Injection Time: 1300 HR Resting HR Supine: 66 bpm Max Heart Rate (APMHR): 154 bpm Resting HR Standin bpm Target HR (85% APMHR): 130 bpm Max HR Achieved: 158 bpm % of APMHR: 102 Recovery HR: 87 bpm HR response to stress: Normal HR response to stress BP Resting BP Supine: 108/64 mmHg Resting BP Standin/64 mmHg Max BP: 140/60 mmHg Recovery BP: 114/64 mmHg BP response to stress: Normal blood pressure response to stress. ECG Resting ECG: Sinus Rhythm Stress ECG: Sinus Tachycardia ST Change: Normal Arrhythmia: APC's Recovery ECG: Sinus Rhythm Recovery ST Change: Normal Recovery Arrhythmia: APC Clinical Reason for Termination: Target HR Achieved Stress Symptoms: Leg Fatigue Exercise duration: 10 min00 sec Highest Stage Reached: Stage 4: 4.2 mph at 16% grade. Exercise capacity: 11.79 METs Functional Capacity: Above average capacity Stress ECG Conclusion 1. The patient exercised for 10 minutes (12 METS) 2. There was no evidence of ischemia on ECG portion exam. 3. The patient no symptoms suggestive of ischemia. MPI Conclusion Ejection fraction was 65% with stress. No wall motion abnormalities. There is no evidence of ischemia on the imaging portion of the exam. This represents a normal SPECT stress test. Radiologist Interpretation Radiologist Interpretation by: Jn Echavarria MD Interpretation Date/Time: 04/18/2020 16:09:11
== END 2020-04-18 01:46 ==
PROVIDERS: PCP Family Medicine; Visit Provider Internal Medicine
DX: I21.4 Non-ST elevation (NSTEMI) myocardial infarction (principal)
CPT/HCPCS: 78452; 93016; 93018; 93017

== ENCOUNTER 2020-09-21 03:31 | Outpatient (CLI) | payer MEDICARE, OTHER, SELFPAY ==
--- NOTE | 2020-10-06 08:51 | W.ZIOMONITOR ---
Date of service: 10/06/20 Time of Service: 08:51 14 Day Marketing Content Manager Referring Provider:: Leeanne Indications:: Palps Note: There is a 14-day monitor ordered for indication palpitations. ?The patient was in normal sinus rhythm for the majority of the recording with an average heart rate of 71 bpm. ?There were 29 episodes of supraventricular tachycardia with the longest lasting 27 beats. ?There were rare PACs and rare PVCs. No ventricular tachycardia was recorded. ?There were no episodes of atrial fibrillation, no pauses greater than 3 seconds and no evidence of high degree heart block. ?Patient triggered events were associated with sinus rhythm and sinus tachycardia.
== END 2020-09-21 03:51 ==
PROVIDERS: PCP Family Medicine; Visit Provider Family Medicine
DX: R00.2 Palpitations (principal)
CPT/HCPCS: 0296T

== ENCOUNTER 2020-10-06 08:00 | Outpatient (CLI) | payer MEDICARE, OTHER, SELFPAY | END 2020-10-06 08:20 | PROVIDERS: PCP Family Medicine; Referring Provider Family Medicine; Visit Provider Internal Medicine Cardiovascular Disease | DX: R00.2 Palpitations (principal) | CPT/HCPCS: 93248 ==

== ENCOUNTER 2020-10-27 03:02 | Outpatient (CLI) | payer MEDICARE, OTHER, SELFPAY ==
[2020-10-27 14:35] LABS: TSH (W/Ref FT4) 1.04 uIU/mL (0.36-3.74)
== END 2020-10-27 03:22 ==
PROVIDERS: PCP Family Medicine; Visit Provider Family Medicine
DX: R00.2 Palpitations (principal); I21.4 Non-ST elevation (NSTEMI) myocardial infarction
CPT/HCPCS: 36415; 84443

== ENCOUNTER 2021-04-28 03:53 | Outpatient (CLI) | payer MEDICARE, OTHER, SELFPAY ==
--- NOTE | 2021-04-28 08:00 | DI.MAMMO_ITS ---
Exam(s) MAMMO SCREENING EXAM: MAMMO SCREENING CLINICAL HISTORY: screening,Z12.39 TECHNIQUE: Bilateral full field digital CC and MLO mammographic images were obtained with 3D tomosyn thesis and utilizing computer aided detection (CAD). COMPARISON: Available for comparison. FINDINGS: Masses/Architectural Distortion: None seen. Microcalcifications: No suspicious pleomorphic-type are seen. Skin Thickening/Nipple Retraction: None. IMPRESSION: 1. No significant interval change with no specific features of malignancy noted. 2. Unless there is more urgent need, screening mammography is recommended, as per [employer] guidelines. BI-RADS Category 1 - Negative Breast Density - Category B - Scattered areas of fibroglandular density Breast density category C or D implies that the patient has dense breast tissue. Dense breast tissue is very common and is not abnormal but dense breast tissue can make it harder to find cancer on a ma mmogram. Also, dense breast tissue may increase their breast cancer risk. This information about the result of the mammogram report was provided to the patient to raise their awareness. Use this report when you speak with the patient about their risks for breast cancer, which includes their family hist ory. At that time, you may recommend for more screening tests (Ultrasound or MRI) as they might be us eful based on their risk. A negative radiographic report should not delay biopsy if a dominant or clinically suspicious mass is present. Up to ten percent of cancers are not identified on mammography. A negative report may reinforce clinical impression. Adenosis and dense breasts may obscure an underlying neoplasm. False positive reports average 6 to 10%. Patient will receive a letter notifying them of these results.
== END 2021-04-28 04:13 ==
PROVIDERS: PCP Family Medicine; Visit Provider Family Medicine
DX: Z12.31 Encounter for screening mammogram for malignant neoplasm of breast (principal); R92.8 Other abnormal and inconclusive findings on diagnostic imaging of breast
CPT/HCPCS: 77063; 77067